=== PATIENT | male | born 1945 | race Caucasian/White ===

== ENCOUNTER 2020-08-01 08:36 | Outpatient (CLI) | payer MEDICARE, SELFPAY ==
--- NOTE | ~2020-08-01 | XR_ITS ---
EXAMINATION: XR abdomen/kub 1V DATE: 08/01/2020 09:15 INDICATION: Bladder stone. TECHNIQUE: A supine view of the abdomen on 2 radiographs was obtained. COMPARISON: CT abdomen and pelvis 08/01/2020 FINDINGS: There are no dilated loops of bowel. Calcified pulmonary nodules are consistent with old gr anulomatous disease. There are surgical clips in the posterior mediastinum and upper abdomen. Calcifi cations in the spleen are consistent with old granulomatous disease. The kidneys are obscured by mulu l. There is a 2.7 cm stone in the bladder. There are phleboliths in the pelvis. IMPRESSION: 1. Bladder stone. Reviewed, dictated and finalized at location B. IMPRESSION: 1. Bladder stone.
--- NOTE | ~2020-08-01 | CT_ITS ---
EXAMINATION: CT abdomen pelvis wo con DATE: 08/01/2020 09:09 INDICATION: Bladder stone TECHNIQUE: Computed tomography (CT) of the abdomen and pelvis was performed without intravenous contr ast. Automated exposure control and iterative reconstruction technique were employed. Exam dose: 674 .98 mGy-cm total exam DLP. COMPARISON: None. FINDINGS: Probable postoperative deformity of the left rib cage. There are numerous bilateral calcified pulmonary granulomas. There are bilateral calcified hilar as w ell as subcarinal lymph nodes. Multiple calcified splenic granulomas. There is elevation left leaf of diaphragm and associated atelectasis at the left lung base. No infiltrate or consolidation is noted otherwise at the level included lower lung zones. Heart size is upper limits of normal. Coronary artery calcification. No pericardial or pleural effusi on. Small sliding hiatal hernia. There is no evidence of cholelithiasis. Gallbladder wall appears thickened. No pericholecystic fluid or fat stranding. No bile duct or pancreatic duct dilatation. No hepatic, splenic, pancreatic, adrenal or renal space-occupying mass lesion is detected. There are multiple bilateral nonobstructing renal calculi. No ureteral calculus or hydroureteronephrosis. There is a 2.6 cm bladder stone. There is prostate enlargement and multiple prostate calcifications. There is moderate diffuse bladder wall thickening likely secondary to bladder outlet obstruction; cystitis would be an additional cons ideration in the differential diagnosis due to the presence of mild fat stranding around the urinary bladder. Bilateral fat-containing inguinal hernias, left larger than right. Small fat-containing umbilical hernia. Normal appendix. There are numerous diverticula in the sigmoid and descending colon; no CT evidence of diverticulitis. No bowel obstruction, bowel wall thickening, pneumatosis or intraperitoneal free air. There is atherosclerotic calcification of the abdominal aorta and branches but no abdominal aortic an eurysm. No intraperitoneal or retroperitoneal or pelvic mass lesion or adenopathy or ascites. Diffuse idiopathic skeletal hyperostosis of the thoracic spine. There is degenerative change at the apophyseal joints of the lumbar spine with associated grade 1 ant erolisthesis at L4-5. There is degenerative spurring and degenerative disc disease of the lumbar spin e, the degenerative disc disease most pronounced at L4-5. No suspicious osteolytic or osteoblastic lesions are noted. 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 Reviewed, dictated and finalized at location A.
== END 2020-08-01 08:37 | disposition home or self-care (01) ==
PROVIDERS: PCP Family Medicine; Visit Provider Urology
DX: N21.0 Calculus in bladder (principal); N40.0 Benign prostatic hyperplasia without lower urinary tract symptoms; N20.0 Calculus of kidney; K57.90 Diverticulosis of intestine, part unspecified, without perforation or abscess without bleeding; K40.20 Bilateral inguinal hernia, without obstruction or gangrene, not specified as recurrent; D71 Functional disorders of polymorphonuclear neutrophils
CPT/HCPCS: 74018; 74176

== ENCOUNTER → 2020-08-06 09:11 | Outpatient (CLI) | payer MEDICARE, SELFPAY ==
[2020-08-06 20:07] LABS: SARS-CoV-2 RNA PCR Negative
== END ==
PROVIDERS: Visit Provider Urology
DX: Z01.812 Encounter for preprocedural laboratory examination (principal); Z20.822 Contact with and (suspected) exposure to COVID-19
CPT/HCPCS: C9803; U0003; U0005

== ENCOUNTER 2020-08-07 11:01 | Outpatient (CLI) | payer MEDICARE, SELFPAY ==
--- NOTE | 2020-08-07 11:30 | ECG_ITS ---
Measurements Intervals [place] Rate: 70 P: 79 WI: 254 QRS: -6 QRSD: 91 T: 28 QT: 336 QTc: 362 Interpretive Statements SINUS RHYTHM WITH FIRST DEGREE AV BLOCK INCOMPLETE RIGHT BUNDLE BRANCH BLOCK BASELINE ARTIFACT- I, III, AVR, AVL, AVF ABNORMAL ECG Electronically Signed On 08-07-2020 12:34:15 CDT by Jourdan Rodriguez D.O.
== END 2020-08-07 11:02 | disposition home or self-care (01) ==
PROVIDERS: PCP Family Medicine; Visit Provider Urology
DX: Z01.810 Encounter for preprocedural cardiovascular examination (principal); E78.5 Hyperlipidemia, unspecified; I44.0 Atrioventricular block, first degree; I45.10 Unspecified right bundle-branch block
CPT/HCPCS: 93005

== ENCOUNTER 2020-08-08 19:01 | Observation (INO) | payer MEDICARE, SELFPAY ==
[2020-08-06 13:56] VITALS: BMI 35.6
[2020-08-08] VITALS (17 sets, daily range): BP systolic 117–193; BP diastolic 77–118; PULSE 67–79; RESP 13–29; TEMP 35.6–36.3; O2SAT 92–96
--- NOTE | 2020-08-08 06:48 | WPDHPUPDATE1 ---
History and Physical Update Update Date/Time: 08/08/20 06:48 History and Physical has been reviewed, including an updated exam of the patient. There are NO changes in the patient's condition. Risks, benefits, and alternatives have been discussed and questions answered. Patient agrees to proceed with procedure.
[2020-08-08] MEDS: LACTATED RINGERS 1,000 ML 30 ML IV CONT ×2 (13:03→17:02)
--- NOTE | 2020-08-08 13:04 | P.PNAN_ITS ---
Anes - Initial Pre Proc Eval Procedure: Operation Date: 08/08/20 14:30 Proposed Procedures p Laser Ablation of Bladder Stones - Lazaro Jordan MD Date/Time: 08/08/20 13:04 Surgeon: Lazaro Jordan MD Pre Op Diagnosis: bladder stone, hematuria Patient Data Age: 75 Gender: M Height: 1.68 m Weight: 100 kg Allergies Allergy/AdvReac Type Severity Reaction Status Date / Time morphine AdvReac Hallucinati Verified 08/08/20 13:13 ng Home Medications Medication Instructions Recorded Confirmed Type finasteride 5 mg tablet 5 mg PO DAILY 05/11/19 08/06/20 History lovastatin 40 mg tablet 40 mg PO DAILY #90 tablet 02/05/20 08/06/20 Rx pregabalin 150 mg capsule 150 mg PO BID #60 cap 07/17/20 08/06/20 Rx mirabegron [Myrbetriq] 50 mg PO DAILY 08/06/20 08/06/20 History tamsulosin 0.4 mg PO HS 08/06/20 08/06/20 History Patient hx anesthesia problems: none Family hx anesthesia problems: none PMFSH Past Medical History Medical History Arthritis Ceruminosis FRY (dyspnea on exertion) Dyslipidemia Elevated lipids Elevated PSA (11/16/14) Hyperlipidemia (11/16/14) Neuropathic pain Obesity (BMI 30.0-34.9) Post traumatic stress disorder (PTSD) (12/31/16) Preop cardiovascular exam Right knee pain Routine general health check-up of defined subpopulation (10/22/16) Surgical History Surgical History History of carpal tunnel surgery of right wrist History of fusion of cervical spine 01/19/2019 History of hernia repair History of tonsillectomy and adenoidectomy Family History Family History Mother Acute myocardial infarction Brother Acute myocardial infarction Social History Social History Smoking status: Never smoker Alcohol intake: never Substance use: never Living arrangements: with family Additional living arrangements comments: 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 Gender identity (if verbalized by the patient): Male Spiritual care concerns: No Anes - Eval Final PreProcedure Day of Procedure 08/08/20 13:04 Patient weight: obese Heart: regular rate and rhythm Lungs: clear to auscultation and normal air movement Airway: Mallampati scale class II Neurological: alert and oriented Last oral intake: >/= 8 hours ASA classification: III Emergent: no Anesthetic plan: proceed Anesthesia type and monitoring: general LMA and standard monitoring Informed Consent: The patient's anesthetic plan and its attendant risks and benefits were discussed with the patient/family/POA. Questions were solicited and answers provided to the satisfaction of the patient/family/POA.
[2020-08-08] MEDS: ceFAZolin 2 GM/D5W 50 ML 2 GM/50 ML BAG IVPB (14:59)
[2020-08-08] MEDS: LIDOCAINE HCL 2% GEL UROJET 10 ML PKG MUCOUS MEM (15:17)
--- NOTE | 2020-08-08 17:18 | PM.PROC ---
Procedure Note - Detailed Date of procedure: 08/08/20 Pre-op diagnosis: bladder stone, hematuria Post-op diagnosis: same Procedure performed: Cystoscopy, laser lithotripsy and extraction of a large bladder calculus Description of procedure: Patient brought to the op suite was prepped draped in routine sterile fashion while in dorsal lithotomy position after the uneventful induction of a general LMA anesthetic. A 21 F rigid cystoscope was placed in his bladder. He is obese. Large bladder stone, seen to be larger than had 2.[address] scan. Stone was also very hard making laser lithotripsy painful E slow. Using and 1000 micron laser fiber at a power of 1.2 and we delivered over 59,000 shocks to fracture the stone into small pieces a could be evacuated with an Ellik evacuator. Remainder of the bladder was normal. He had a large prostate with predominantly lateral lobe hyperplasia. Placed a 24 F hematuria catheter with clear efflux at the termination. Anesthesia: GLMA Surgeon: Lazaro Jordan MD Drains: Yes Packing: No Pathology: yes Complications: No immediate complications Condition: stable Disposition: PACU
--- NOTE | 2020-08-08 17:43 | SUR.PHASEI ---
Patient laying on right side. BP is also on right arm. RN thinks BP is inaccurate.
[2020-08-08] MEDS: ONDANSETRON INJ 4 MG/2 ML VIAL IV PUSH (17:58)
[2020-08-08] MEDS: LABETALOL HCL INJ 100 MG/20 ML VIAL IV PUSH ×2 (18:10→18:34)
--- NOTE | 2020-08-08 19:23 | ADMGEN ---
This patient, Fredrick Santiago, was admitted to Medical Room 249-01. Patient/family oriented to hospital policies and general routines including ID bracelet, bed and alarms, visiting hours, pain management, procedures, bathroom and other care routines, personal items, smoking policy, room service/diet, and visiting hours. Information on how to activate the Rapid Response Team has been discussed. Patient/Family are encouraged to report perceived risks to care and to ask questions if they do not understand what they are told or what they should do.
[2020-08-08] MEDS: TAMSULOSIN HCL 0.4 MG CAPSULE PO (20:56)
[2020-08-08] MEDS: DOCUSATE SODIUM 100 MG CAPSULE PO (20:56)
[2020-08-08] MEDS: PREGABALIN (*CRX) 75 MG CAPSULE 150 MG PO (20:56)
[2020-08-09 04:07] VITALS: BP 117/65; PULSE 79; RESP 18; TEMP 36.6; O2SAT 95
[2020-08-09 05:40] LABS: Hematocrit 40.2 % (42.0-52.0); Hemoglobin 13.5 g/dL (14.0-18.0)
[2020-08-09 06:05] LABS: Anion Gap 3 mmol/L (8-16); Blood Urea Nitrogen 18 mg/dL (9-20); Calcium 8.7 mg/dL (8.4-10.2); Carbon Dioxide 31 mmol/L (22-30); Chloride 102 mmol/L (98-107); Estimated CRCL calculation 57 ml/min; Estimated Glomerular Filt Rate > 60; Glucose 141 mg/dL (75-110); Potassium 4.6 mmol/L (3.4-5.0); Sodium 136 mmol/L (137-145)
--- NOTE | 2020-08-09 06:56 | WPDUROPN2 ---
Progress Note: A&P Assessment and Plan (1) Bladder stone: Code(s): N21.0 - Calculus in bladder Status: Acute Assessment and Plan: Doing well following laser litho. large/hard bladder stone. Stop CBI this morning. Voiding trial later this morning if urine remains clear. Subjective Subjective Date/Time Seen: 08/09/20 06:56 Comfortable, urine clear Review of Systems Cardiovascular: Cardiovascular: Denies chest pain, Denies lightheadedness, Denies palpitations and Denies dyspnea Respiratory: Respiratory: Denies dyspnea Gastrointestinal: Gastrointestinal: Denies diarrhea, Denies nausea and Denies vomiting Genitourinary: Genitourinary: Denies hematuria and Denies dysuria Endocrine: Endocrine: Denies palpitations Exam Const: General: no acute distress Resp: Effort & Inspection: normal respiratory effort GI: Inspection: non-distended GI Palp: No abdominal tenderness and No Guarding due to palpation present (GI) Auscultation: normal bowel sounds Objective Data Vital Signs Vital Signs: Vital Signs - 24 hr 08/08/20 13:18 08/08/20 17:02 08/08/20 17:15 Temperature 97.4 F L 96.1 F L Pulse Rate 79 76 71 Respiratory Rate 16 13 17 Blood Pressure 160/107 H 117/77 131/89 Pulse Oximetry 96 94 95 08/08/20 17:30 08/08/20 17:45 08/08/20 18:00 Temperature Pulse Rate 72 67 67 Respiratory Rate 20 28 H 27 H Blood Pressure 167/108 H 165/115 H 193/117 H Pulse Oximetry 95 92 94 08/08/20 18:10 08/08/20 18:15 08/08/20 18:30 Temperature Pulse Rate 68 67 70 Respiratory Rate 24 H 24 H Blood Pressure 167/106 H 157/118 H Pulse Oximetry 94 92 08/08/20 18:34 08/08/20 18:45 08/08/20 19:29 Temperature Pulse Rate 70 68 Respiratory Rate 29 H Blood Pressure 137/101 H Pulse Oximetry 92 93 08/08/20 19:30 08/08/20 19:45 08/08/20 20:15 Temperature 96.8 F L 96.6 F L 96.9 F L Pulse Rate 75 72 70 Respiratory Rate 18 18 20 Blood Pressure 147/91 H 160/89 H 155/92 H Pulse Oximetry 95 94 95 08/08/20 21:36 08/08/20 23:46 08/09/20 04:07 Temperature 97.2 F L 97.4 F L 97.8 F Pulse Rate 74 76 79 Respiratory Rate 20 22 H 18 Blood Pressure 142/93 H 136/80 117/65 Pulse Oximetry 95 95 95 Intake/Output Intake/Output: Intake & Output 08/06/20 08/07/20 08/08/20 08/09/20 23:59 23:59 23:59 23:59 Intake Total 600 400 Output Total 4550 Balance -3950 400 Meds/Results Medications: Active Medications Generic Name Dose Route Start Last Admin Trade Name Freq PRN Reason Stop Dose Admin Cephalexin HCl 500 mg 08/09/20 13:00 Cephalexin 500 Mg Capsule PO QID RUPINDER Docusate Sodium 100 mg 08/08/20 21:00 08/08/20 20:56 Docusate Sodium 100 Mg Capsule PO 100 mg Q12HR RUPINDER Administration Finasteride 5 mg 08/09/20 09:00 Finasteride 5 Mg Tablet PO DAILY [facility] Hyoscyamine 0.125 mg 08/08/20 19:01 Hyoscyamine Sulfate 0.125 Mg Tablet SUBLINGUAL Q6H PRN Bladder Spasm Cefazolin Sodium 1 gm in 50 mls @ 100 mls/hr 08/08/20 23:00 08/09/20 06:36 Ancef 1 Gm/D5w 50 Ml Pm IVPB 08/09/20 07:29 100 mls/hr Q8H RUPINDER Administration Ketorolac Tromethamine 15 mg 08/08/20 19:01 Ketorolac 15 Mg/Ml Vial (*Bk) IV PUSH Q6H PRN Pain Rated 4-6 Lovastatin 40 mg 08/09/20 09:00 Lovastatin 20 Mg Tablet PO DAILY [facility] Mirabegron 50 mg 08/09/20 09:00 Mirabegron 50 Mg Er Tablet PO DAILY [facility] Naloxone HCl 0.1 mg 08/08/20 19:01 Naloxone Hcl 0.4 Mg/Ml Vial IV PUSH Q2M PRN Opiate Reversal Ondansetron HCl 4 mg 08/08/20 19:01 Ondansetron Inj 4 Mg/2 Ml Vial IV PUSH Q12H PRN Nausea And Vomiting Pregabalin 150 mg 08/08/20 21:00 08/08/20 20:56 Pregabalin (*Crx) 75 Mg Capsule PO 150 mg Q12HR RUPINDER Administration Tamsulosin HCl 0.4 mg 08/08/20 21:00 08/08/20 20:56 Tamsulosin Hcl 0.4 Mg Capsule PO 0.4 mg HS RUPINDER Administration Labs Labs: Laboratory Results - last
[2020-08-09] MEDS: FINASTERIDE 5 MG TABLET PO (07:58)
[2020-08-09] MEDS: LOVASTATIN 20 MG TABLET 40 MG PO (07:58)
[2020-08-09] MEDS: PREGABALIN (*CRX) 75 MG CAPSULE 150 MG PO (07:58)
[2020-08-09] MEDS: MIRABEGRON 50 MG ER TABLET PO (07:58)
[2020-08-09] MEDS: DOCUSATE SODIUM 100 MG CAPSULE PO (07:59)
[2020-08-09 08:30] VITALS: O2SAT 94
[2020-08-09 08:46] VITALS: BP 118/63; PULSE 86; RESP 18; TEMP 37.3; O2SAT 94
[2020-08-09 09:36] VITALS: O2SAT 90
--- NOTE | 2020-08-09 10:07 | WPDANESPN ---
Anes - Prog Note Post-Op Date/Time: 08/09/20 10:07 Cardiovascular status: normal Respiratory status: normal Airway patency: baseline Mental status: baseline Post-Op hydration status: normal Vital Signs: Last Vital Signs Temp 37.3 C 08/09/20 08:46 Pulse 86 08/09/20 08:46 Resp 18 08/09/20 08:46 BP 118/63 08/09/20 08:46 Pulse Ox 90 08/09/20 09:36 Pain Score (VAS): 0 I/O: Intake & Output 08/08/20 08/09/20 08/09/20 23:59 07:59 15:59 Intake Total 600 450 480 Output Total 4550 1000 Balance -3950 -550 480 Laboratory Tests 08/09/20 05:30 08/09/20 05:30 08/09/20 08/09/20 05:30 05:30 Hgb 13.5 L Hct 40.2 L Sodium 136 L Potassium 4.6 Chloride 102 Carbon Dioxide 31 H Anion Gap 3 L BUN 18 Creatinine 1.10 Estim Creat Clear Calc 57 Estimated GFR > 60 Glucose 141 H Calcium 8.7 Post-procedural complaints: none Patient Feedback: Patient satisfied with anesthetic care.
[2020-08-09 12:46] VITALS: BP 120/84; PULSE 96; RESP 18; TEMP 37.2; O2SAT 99
--- NOTE | 2020-08-09 13:03 | P.DS_ITS ---
DS: Admitting Diagnosis Admitting Diagnosis Admitting Diagnosis: BPH and bladder calculus DS: Discharge Diagnosis Discharge Diagnosis (1) Bladder stone: Code(s): N21.0 - Calculus in bladder Status: Acute DS: Summary Hospital Course Hospital Course: This patient with longstanding prostatism refractory for medical management was admitted on the morning of his planned laser lithotripy large bladder stone. The procedure was undertaken on that same day in an uneventful fashion. His post-operative course was, likewise, uneventful. On the evening of the procedure he was tolerating a diet. On POD#1 his urine was clear on CBI. The urine remained clear and, therefore, the catheter was removed late morning. The patient was observed for several hours, until he demonstrated he could void effectively without significant hematuria. He was discharged with careful instruction on limiting physical activity x2 weeks and plans to f/ in 2- 3 weeks. At discharge he was comfortable and tolerating a diet. Time Spent with Patient Time attestation: Total time spent providing and/or coordinating discharge services:20 min Exam Const: General: no acute distress Resp: Effort & Inspection: normal respiratory effort GI: Inspection: non-distended GI Palp: No abdominal tenderness and No Guarding due to palpation present (GI) Auscultation: normal bowel sounds DS: Data Data Completed and Pending Pending studies at discharge: Pending at discharge 08/08/20 16:54 Surgical [PTH] Routine Labs on day of discharge: Labs from last 24 hours 08/09/20 08/09/20 05:30 05:30 Hgb 13.5 L Hct 40.2 L Sodium 136 L Potassium 4.6 Chloride 102 Carbon Dioxide 31 H Anion Gap 3 L BUN 18 Creatinine 1.10 Estim Creat Clear Calc 57 Estimated GFR > 60 Glucose 141 H Calcium 8.7 Discharge Plan Discharge Attending physician on discharge: Lazaro Jordan Discharging Clinician: Lazaro Jordan Anticipated Discharge Date/Time: 08/09/20 13:00 Patient Disposition: Home, Self-Care Activity: unlimited Diet: as tolerated Discharge Instructions: 1) Activity: No lifting/straining >15lbs. x1 weeks. 2) Diet: Resume normal pre-admission diet. 3) Follow-up: 2-3 weeks / call office for appointment ([phone]). Patient Instructions: Antibiotic Form, Depression Management for Older Adults (GEN) Stand Alone Forms: General Discharge Information Follow-up/Referrals: Lazaro Jordan MD [Physician] - Discharge Medications: New hydrocodone-acetaminophen 5-325 mg tablet 1 - 2 tablet PO Q6H PRN (Reason: pain) Qty: 20 RF: 0 sulfamethoxazole-trimethoprim 800-160 mg tablet 1 tablet PO Q12H Qty: 6 RF: 0 Continued tamsulosin 0.4 mg capsule 0.4 mg PO HS RF: 0 Myrbetriq 50 mg tablet extended release 24 hr 50 mg PO DAILY RF: 0 finasteride 5 mg tablet 5 mg PO DAILY RF: 0 lovastatin 40 mg tablet 40 mg PO DAILY Qty: 90 RF: 3 pregabalin 150 mg capsule 150 mg PO BID Qty: 60 RF: 3 Date of admission: 08/08/20 19:01 Primary Care Provider: Noel Mcclain Admitting Provider: Lazaro Jordan Attending physician on admission: Lazaro Jordan Condition: Stable
[2020-08-09] MEDS: CEPHALEXIN 500 MG CAPSULE PO (13:46)
== END 2020-08-09 13:58 | disposition home or self-care (01) ==
LOC: ANH2MED 19:09
PROVIDERS: Admitting Provider Urology; PCP Family Medicine; Visit Provider Urology
PROC: (CPT 52318; principal; 2020-08-08 14:30)
DX: N21.0 Calculus in bladder (principal); R31.9 Hematuria, unspecified; N40.0 Benign prostatic hyperplasia without lower urinary tract symptoms
CPT/HCPCS: 52318; 36415; 80048; 82365; 85014; 85018; 88300; 93005; A9270; C1758; C9803; G0378; J0690; J1100; J2405; J2704; J3010; J7120; U0003; U0005

== ENCOUNTER 2020-12-30 11:40 | Outpatient (CLI) | payer MEDICARE, SELFPAY ==
[2020-12-30 12:48] LABS: SARS-CoV-2 RNA PCR Negative (Negative)
== END 2020-12-30 11:41 | disposition home or self-care (01) ==
LOC: CHSLAB 11:43
PROVIDERS: PCP Family Medicine; Visit Provider Family Medicine
DX: Z20.822 Contact with and (suspected) exposure to COVID-19 (principal)
CPT/HCPCS: C9803; U0003; U0005

== ENCOUNTER 2021-11-17 11:40 | Outpatient (CLI) | payer MEDICARE, SELFPAY ==
--- NOTE | ~2021-11-17 | XR_ITS ---
EXAM: XR abdomen/kub 1V DATE: 11/17/2021 12:02 HISTORY: BLADDER STONE . COMPARISON: 08/01/2020. FINDINGS: Cholecystectomy and GE junction surgical clips. Normal bowel gas pattern. No organomegaly. Bladder calcification no longer visualized. Pelvic phleboliths. Calcified pulmonary or liver granulo mas. Vascular calcifications. Degenerative lumbar spine changes. IMPRESSION: No bladder stones detected.. Reviewed, dictated and finalized at location K.
== END 2021-11-17 11:41 | disposition home or self-care (01) ==
PROVIDERS: PCP Family Medicine; Visit Provider Urology
DX: N21.0 Calculus in bladder (principal)
CPT/HCPCS: 74018

== ENCOUNTER 2023-01-19 11:19 | Outpatient (CLI) | payer MEDICARE, SELFPAY ==
--- NOTE | ~2023-01-19 | XR_ITS ---
XR abdomen/kub 1V 01/19/2023 11:42 Indication: Bladder stones Procedure: KUB Comparison: Comparison to multiple prior studies sequentially, with oldest reviewed study dated 11/17. Findings: There are multiple calcifications in the pelvis. Cannot exclude bladder stones. There are r ight renal stones. Bowel gas pattern is nonobstructive. Moderate lumbar spondylosis. Impression: 1: Right nephrolithiasis. Possible bladder stones. Reviewed, dictated and finalized at location A. Impression: 1: Right nephrolithiasis. Possible bladder stones.
== END 2023-01-19 11:20 | disposition home or self-care (01) ==
PROVIDERS: PCP Family Medicine; Visit Provider Urology
DX: N21.0 Calculus in bladder (principal)
CPT/HCPCS: 74018

== ENCOUNTER 2023-01-27 10:57 | Outpatient (CLI) | payer MEDICARE, SELFPAY ==
--- NOTE | 2023-01-27 11:06 | ECG_ITS ---
Measurements Intervals [place] Rate: 59 P: 49 MS: 256 QRS: -11 QRSD: 59 T: 1 QT: 414 QTc: 410 Interpretive Statements SINUS BRADYCARDIA WITH FIRST DEGREE AV BLOCK ATRIAL PREMATURE COMPLEX RIGHT BUNDLE BRANCH BLOCK BASELINE ARTIFACT- I, II, III, AVR, AVL, AVF, V4-V6 ABNORMAL ECG COMPARED TO ECG 08/07/2020 11:18:36 SINUS BRADYCARDIA NOW PRESENT RIGHT BUNDLE BRANCH BLOCK NOW PRESENT Electronically Signed On 01-27-2023 11:34:44 CUSTOMER PROGRAM MANAGER by Jourdan Rodriguez D.O.
[2023-01-27 11:51] LABS: Prothrombin Time 13.5 Seconds (11.1-14.7)
[2023-01-27 11:52] LABS: Partial Thromboplastin Time 28.1 SECONDS (22.3-36.8)
== END 2023-01-27 10:58 | disposition home or self-care (01) ==
LOC: ANHSURGERY 11:03
PROVIDERS: PCP Family Medicine; Visit Provider Urology
DX: Z01.812 Encounter for preprocedural laboratory examination (principal); Z01.810 Encounter for preprocedural cardiovascular examination; N20.0 Calculus of kidney; E78.00 Pure hypercholesterolemia, unspecified; R00.1 Bradycardia, unspecified; I44.0 Atrioventricular block, first degree; I45.10 Unspecified right bundle-branch block
CPT/HCPCS: 36415; 85610; 85730; 87086; 93005

== ENCOUNTER 2023-02-05 00:28 | Day surgery (SDC) | payer MEDICARE, SELFPAY ==
[2023-01-25 11:09] VITALS: BMI 32.9
--- NOTE | 2023-01-25 11:17 | PC.NURSE ---
PRE-OP INSTRUCTIONS, PLEASE READ CAREFULLY Report to the Outpatient Waiting Room, entrance under the green pavilion located off [facility], at time _0900_ on date _02/05/23_. Planned Procedure Time: _1100_. Time changes happen often and if your time is changed the preop area will call you the afternoon before. - You and your visitor will be asked to self-screen and do not enter if you have any COVID symptoms. - A mask is optional within the hospital at this time. Patients may have clear liquids (water, carbonated beverages, clear teas, apple juice) until 3 hours prior to surgery (0800 AM) with a maximum of 20 ounces. - No food from midnight until time of surgery Take the following medications with a SIP of water the morning of surgery: _PREGABALIN_ DO NOT STOP ANY OF YOUR OTHER PRESCRIPTION MEDICATIONS PRIOR TO SURGERY ?EXCEPT THE FOLLOWING Medications to discontinue _ALEVE PER DR. LUONG'S INSTRUCTIONS__ Please no make-up, nail german, hairspray, perfume, deodorant, or body powder the day of surgery. No jewelry (including any body piercings) or valuables the day of surgery, leave them at home. Please take a shower or bath the night before, or the morning of, surgery with an antibacterial soap. Wear comfortable, loose fitting clothing. Children are encouraged to wear pajamas. - Jewelry must be removed prior to entering the operating room. Rings and piercings that are not removed may be cut off. - The hospital will not accept responsibility for valuables. - Please leave all valuables, including medications, at home the day of surgery. If you are going home after surgery, a licensed regional refrigerated cdl truck driver must drive you home. - NO public transportation without another adult if you receive anesthesia. - We recommend that an adult stay with you for 24 hours following discharge. - We also recommend that you do not drive, make important decision, drink alcoholic beverages, or take any drugs that were not prescribed by your health care provider for at least 24 hours after your discharge time. For Pediatric surgeries, we recommend two adults accompany the child home. Follow any additional instructions given to you from your surgeon. If you or anyone in your household have experienced Covid symptoms in the past week, please notify your surgeon or the nurse liaison at the phone number below for possible testing. Telephone instructions given to _MYRANDA (PER PT REQUEST)_and asked if any additional questions and then verbalized understanding. Patient advised to call surgeon office or pre surgery nurse liaison [phone] if any additional questions.
[2023-02-05] VITALS (9 sets, daily range): BP systolic 102–148; BP diastolic 67–91; PULSE 57–91; RESP 14–18; TEMP 36.5–36.6; O2SAT 94–100
--- NOTE | ~2023-02-05 | XR_ITS ---
EXAMINATION: XR abdomen/kub 1V DATE: 02/05/2023 08:59 INDICATION: Kidney stone. TECHNIQUE: A supine view of the abdomen on 2 radiographs was obtained. COMPARISON: CT abdomen and pelvis 08/01/2020 FINDINGS: There are no dilated loops of bowel. There are phleboliths in the pelvis. There are calcifi cations in the prostate. There are 6 mm and 2 mm stones in right kidney. There is a 10 mm stone in th e area of right renal pelvis. There are surgical clips in the upper abdomen. IMPRESSION: 1. Stones in the right kidney and right renal pelvis. Reviewed, dictated and finalized at location A. BACK RIDER
--- NOTE | 2023-02-05 06:40 | WPDHPUPDATE1 ---
History and Physical Update Update Date/Time: 02/05/23 06:40 History and Physical has been reviewed, including an updated exam of the patient. There are NO changes in the patient's condition. Risks, benefits, and alternatives have been discussed and questions answered. Patient agrees to proceed with procedure.
[2023-02-05] MEDS: LACTATED RINGERS 1,000 ML 30 ML IV CONT ×2 (09:30→11:41)
--- NOTE | 2023-02-05 09:39 | WPDANESEPPF ---
Anes - Initial Pre Proc Eval Procedure: Operation Date: 02/05/23 11:00 Proposed Procedures p Right Renal Extracorporeal Shock Wave Lithotripsy - Lazaro Jordan MD Date/Time: 02/05/23 09:39 Surgeon: Lazaro Jordan MD Pre Op Diagnosis: right renal stones Patient Data Age: 77 Gender: M Height: 1.7 m Weight: 95.45 kg Allergies Allergy/AdvReac Type Severity Reaction Status Date / Time morphine AdvReac Hallucinati Verified 01/25/23 11:07 ng Home Medications Medication Instructions Recorded Confirmed Type finasteride 5 mg tablet 5 mg PO DAILY #90 tabs 06/18/22 01/25/23 Rx tamsulosin 0.4 mg capsule 0.4 mg PO HS #90 caps 06/18/22 01/25/23 Rx lovastatin 40 mg tablet See Rx Instructions .Route 11/02/22 01/25/23 Rx .COMPLEX #90 tabs pregabalin 225 mg capsule 225 mg PO BID #60 caps 01/22/23 01/25/23 Rx naproxen sodium 220 mg capsule 220 mg PO BID PRN Pain 01/25/23 01/25/23 History (Aleve) Patient hx anesthesia problems: none Family hx anesthesia problems: none Results Review: All pre-operative results and documents have been reviewed as part of the pre-operative evaluation. [facility] Past Medical History Medical History Bladder stone Ceruminosis Elevated blood pressure reading in office without diagnosis of hypertension Right knee pain Viral upper respiratory illness Surgical History Surgical History History of carpal tunnel surgery of right wrist History of fusion of cervical spine 01/19/2019 History of hernia repair History of tonsillectomy and adenoidectomy Family History Family History Mother Acute myocardial infarction Brother Acute myocardial infarction Social History Social History Smoking status: Never smoker Second hand tobacco smoke exposure: No Alcohol intake: never Substance use: never Substance use type: does not use Lack of Transportation: No Lack of Food: Never True Current Housing: I Have Housing Concerned About Future Housing: No Difficulty Paying Gas/Electric Bills: No Difficulty Paying for Meds: No Currently Unemployed: No Education: High School Diploma/GED Difficulty w/ Childcare or Family Care: No Living arrangements: with friend(s) Additional living arrangements comments: [place] Occupation/Education: retired 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 Gender identity (if verbalized by the patient): Male Sexual Orientation (if Verbalized by the Patient): Straight or Heterosexual Spiritual care concerns: No Anes - Eval Final PreProcedure Day of Procedure 02/05/23 09:39 Patient weight: obese Heart: regular rate and rhythm Lungs: clear to auscultation Airway: Mallampati scale class II and special considerations poor extension and poor dentition Neurological: alert and oriented Last oral intake: >/= 8 hours ASA classification: IV Emergent: no Anesthetic plan: proceed Anesthesia type and monitoring: general LMA and standard monitoring Results Review: All pre-operative results and documents have been reviewed as part of the pre-operative evaluation. Informed Consent: The patient's anesthetic plan and its attendant risks including loss/damage to his very weak teeth and benefits were discussed with the patient/family/POA. Questions were solicited and answers provided to the satisfaction of the patient/family/POA.
[2023-02-05] MEDS: ceFAZolin 2 GM/D5W 50 ML 2 GM/50 ML BAG IVPB (10:39)
--- NOTE | 2023-02-05 11:01 | W.PM.PROC2 ---
Procedure Note - Detailed Date of Procedure 02/05/23 Pre-op Diagnosis Right renal stones Post-op Diagnosis Other Procedure Performed Right ESWL Surgeon Lazaro Jordan MD Anesthesia General Description of Procedure The patient was brought to the operative suite where she was placed in the supine position on the Dornier lithotripsy table. We treated 2 stones in her right kidney - 1700 shocks to a larger and more medial and 800 shocks to the smaller. A total of 2500 shocks were delivered at a power setting of 4. There appeared to be good fragmentation of the stone. The patient tolerated the procedure well and was taken to the recovery room in good condition. Drains No Packing No Pathology None sent Complications No immediate complications Condition Stable
== END 2023-02-05 13:26 | disposition home or self-care (01) ==
PROVIDERS: PCP Family Medicine; Visit Provider Urology
PROC: (CPT 50590; principal; 2023-02-05 11:00)
DX: N20.0 Calculus of kidney (principal); E78.00 Pure hypercholesterolemia, unspecified; N40.1 Benign prostatic hyperplasia with lower urinary tract symptoms; N52.01 Erectile dysfunction due to arterial insufficiency; E66.9 Obesity, unspecified; Z68.33 Body mass index [BMI] 33.0-33.9, adult; Z82.49 Family history of ischemic heart disease and other diseases of the circulatory system
CPT/HCPCS: 50590; 36415; 74018; 85610; 85730; 87086; 93005; J0690; J1100; J2371; J2405; J2704; J3010; J7120

== ENCOUNTER 2023-02-16 08:50 | Outpatient (CLI) | payer MEDICARE, SELFPAY ==
--- NOTE | ~2023-02-16 | XR_ITS ---
Supine and upright views of the abdomen Clinical history: Right kidney stone COMPARISON: 02/05/2023 Findings: Bowel gas pattern is nonspecific. No evidence for obstruction or free air. There are probab le fragmented stones at the right lower renal pole. There are probable at least 2 right mid ureteral stones projecting at the level of L3. Osseous structures are intact. Impression: Probably 2 mid right ureteral stones at the level of L3. Probable fragment at right lower pole renal stones. Reviewed, dictated and finalized at location . AUTOMATION ENGINEER Impression: Probably 2 mid right ureteral stones at the level of L3. Probable fragment at right lower pole renal stones.
== END 2023-02-16 08:51 | disposition home or self-care (01) ==
PROVIDERS: PCP Family Medicine; Visit Provider Urology
DX: N20.0 Calculus of kidney (principal)
CPT/HCPCS: 74018

== ENCOUNTER 2023-02-25 11:42 | Outpatient (CLI) | payer MEDICARE, SELFPAY ==
--- NOTE | ~2023-02-25 | XR_ITS ---
XR abdomen/kub 1V 02/25/2023 11:58 Indication: Renal stone Procedure: KUB Comparison: Comparison to multiple prior studies sequentially, with oldest reviewed study dated 11/17. Findings: Nonobstructive bowel gas pattern. There are splenic arterial calcification. There are calci fied granulomas overlying the lung bases. No renal stones. Moderate lumbar spondylosis. Impression: 1: No acute abdominal abnormality. Reviewed, dictated and finalized at location L. RVISOR WIRE ROPE FABRICATION Impression: 1: No acute abdominal abnormality.
== END 2023-02-25 11:43 | disposition home or self-care (01) ==
PROVIDERS: PCP Family Medicine; Visit Provider Urology
DX: N20.0 Calculus of kidney (principal)
CPT/HCPCS: 74018

== ENCOUNTER 2023-07-31 06:58 | Outpatient (CLI) | payer MEDICARE, SELFPAY ==
--- NOTE | ~2023-07-31 | MR_ITS ---
EXAMINATION: MR brain IAC wo con DATE: 07/31/2023 08:46 INDICATION: Bilateral leg weakness. Frequent falls. Stutter. TECHNIQUE: Magnetic resonance imaging (MRI) of the brain, brainstem, and internal auditory canals was performed without intravenous contrast. COMPARISON: None. FINDINGS: There is no intracranial hemorrhage, acute infarction, or abnormal intracranial mass lesion . There are scattered areas of nonspecific increased T2-weighted signal intensity in the cerebral whi te matter, which is within normal limits for the patient's age. There is an old infarct in left front oparietal region. The ventricles are normal in size. There are likely changes of ocular lens replacem ent surgeries. The mastoid air cells are normal. The paranasal sinuses are clear. IMPRESSION: 1. 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 Reviewed, dictated and finalized at location E.
== END 2023-07-31 06:59 | disposition home or self-care (01) ==
LOC: CHSIMG 06:59
PROVIDERS: PCP Family Medicine; Visit Provider Family Medicine
DX: R09.89 Other specified symptoms and signs involving the circulatory and respiratory systems (principal); Z86.73 Personal history of transient ischemic attack (TIA), and cerebral infarction without residual deficits
CPT/HCPCS: 70551

== ENCOUNTER 2023-08-05 12:03 | Outpatient (CLI) | payer MEDICARE, SELFPAY ==
--- NOTE | ~2023-08-05 | US_ITS ---
EXAMINATION: US carotid duplex BI DATE: 08/05/2023 13:00 INDICATION: Cerebral infarction, unspecified. Left frontoparietal infarct. TECHNIQUE: Grayscale, color Doppler, and pulsed Doppler images of the cervical carotid arteries were obtained. The degree of vessel stenosis is placed in one of the following categories: normal, <50%, 5 0-69%, >=70% but less than near-occlusion, near-occlusion, or total occlusion. Note that percent sten osis relative to normal distal artery lumen diameter is indirectly measured from velocity measurement s as described by Larry, et al. Radiology 2003; 229:340-346. COMPARISON: None. FINDINGS: RIGHT: The right common carotid artery (CCA) peak systolic velocity (PSV) is 134 cm/s. The right internal ca rotid artery (ICA) PSV is 123 cm/s. The right ICA end-diastolic velocity (EDV) is 98 cm/s. The right ICA/CCA PSV ratio is 1.0. Grayscale and color Doppler images yield an estimate of <50% diameter reduc tion from plaque in the ICA. Right vertebral artery is not identified. LEFT: The left CCA PSV is 94 cm/s. The left ICA PSV is 80 cm/s. The left ICA EDV is 25 cm/s. The left ICA/C CA PSV ratio is 0.9. Grayscale and color Doppler images yield an estimate of <50% diameter reduction from plaque in the ICA. There is antegrade flow in the left vertebral artery. IMPRESSION: 1. <50% stenosis in the right internal carotid artery. 2. <50% stenosis in the left internal carotid artery. 3. Right vertebral artery is not identified and may be small or thrombosed. Reviewed, dictated and finalized at location E.
== END 2023-08-05 12:04 | disposition home or self-care (01) ==
LOC: CHSIMG 12:04
PROVIDERS: PCP Family Medicine; Visit Provider Family Medicine
DX: I65.23 Occlusion and stenosis of bilateral carotid arteries (principal)
CPT/HCPCS: 93880

== ENCOUNTER 2023-08-19 14:41 | Outpatient (CLI) | payer MEDICARE, SELFPAY ==
--- NOTE | 2023-08-19 14:48 | ECHO_ITS ---
Patient Info Name: Fredrick Santiago Age: 78 years : 1945 Gender: Male Ht: 66 in Wt: 240 lbs BSA: 2.30 m2 HR: 66 bpm BP: 159 / 93 mmHg Technical Quality: Fair Exam Date: 08/19/2023 2:40 PM Exam Location: Echo Lab Patient Status: Outpatient Admit Date: 08/19/2023 Staff Ordering Physician: Mitesh Garcia DO Forming Process Line Worker: Donald Reilly RDCS Attending Provider: Mitesh Garcia DO Referring Physician: Jose MAHONEY; Exam Type: CA echo doppler color flow Study Info Indications - heart failure Summary 1. Left ventricular chamber dimension is normal. 2. Left ventricular systolic function is normal, estimated at 60-65%. 3. There is mild concentric increased left ventricular wall thickness. 4. The left ventricular diastolic function is grade I diastolic dysfunction. 5. E/e' 14 is mildly elevated. 6. Left atrial chamber dimension is severely enlarged. 7. There is moderate aortic valve sclerosis. 8. There is trace tricuspid valve regurgitation. 9. No pulmonary hypertension, estimated pulmonary arterial systolic pressure is 31 mmHg. 10. There is trace pulmonic regurgitation. 11. The aortic root size at the sinus of Valsalva is borderline dilated at 4.0 cm. Left Ventricle E/e' 14 is mildly elevated. Left ventricular chamber dimension is normal. Left ventricular systolic function is normal, estimated at 60-65%. There is mild concentric increased left ventricular wall thickness. The left ventricular diastolic function is grade I diastolic dysfunction. Right Ventricle Right ventricular systolic function is normal and with normal TAPSE 2.5 cm. Right ventricular chamber dimension is normal. Left Atria Left atrial chamber dimension is severely enlarged. Right Atria Right atrial chamber dimension is normal. Aortic Valve The aortic valve is trileaflet. There is moderate aortic valve sclerosis. There is no aortic valve stenosis. There is no aortic valve regurgitation. Pulmonic Valve There is trace pulmonic regurgitation. Mitral Valve There is no mitral valve stenosis. There is no mitral valve regurgitation. Tricuspid Valve There is trace tricuspid valve regurgitation. No pulmonary hypertension, estimated pulmonary arterial systolic pressure is 31 mmHg. Pericardium/Pleural There is no pericardial effusion. Inferior Vena Cava Normal inferior vena cava with >50% collapse upon inspiration consistent with normal right atrial pressure, 5 mmHg. Aorta The aortic root size at the sinus of Valsalva is borderline dilated at 4.0 cm. Left Ventricular Outflow Tract Name Value Normal LVOT 2D LVOT Diameter 2.2 cm LVOT Doppler LVOT Peak Velocity 131 cm/s LVOT Peak Gradient 7 mmHg LVOT Mean Gradient 4 mmHg LVOT VTI 28 cm LVOT VTI/AV VTI Ratio 0.7 LVOT Stroke Volume 109 ml Pulmonic Valve Name Value Normal PV Doppler
== END 2023-08-19 14:42 | disposition home or self-care (01) ==
PROVIDERS: PCP Family Medicine; Visit Provider Family Medicine
DX: I63.9 Cerebral infarction, unspecified (principal); I50.9 Heart failure, unspecified
CPT/HCPCS: 93306

== ENCOUNTER 2023-08-24 09:59 | Outpatient (CLI) | payer MEDICARE, SELFPAY ==
--- NOTE | ~2023-08-24 | XR_ITS ---
Supine and upright views of the abdomen Clinical history: Kidney stone COMPARISON: 02/25/2023 Findings: Bowel gas pattern is nonspecific. No evidence for obstruction or free air. Suspected small left renal stones. There is degenerative spondylosis of the lumbar spine. Impression: Suspected small left renal stones. Reviewed, dictated and finalized at [facility]. Impression: Suspected small left renal stones.
== END 2023-08-24 10:00 | disposition home or self-care (01) ==
LOC: ANHIMG 10:00
PROVIDERS: PCP Family Medicine; Visit Provider Urology
DX: N20.0 Calculus of kidney (principal)
CPT/HCPCS: 74018

== ENCOUNTER 2024-06-04 15:48 | Emergency (ER) | payer MEDICARE, SELFPAY ==
--- NOTE | ~2024-06-04 | XR_ITS ---
EXAM: XR elbow RT min 3V DATE: 06/04/2024 16:12 HISTORY: Fall, Rt. elbow pain . COMPARISON: None available. FINDINGS: Normal mineralization. Subtle cortical lucencies in the radial head. No lytic or blastic l esion. Severe degenerative change at the right elbow joint, with multiple loose bodies/old well-corti cated fracture fragments. Minimal olecranon enthesopathy. No erosion or periosteal change. Elbow join t effusion. IMPRESSION: Likely nondisplaced radial head fracture. Severe elbow osteoarthritis. Elbow joint effusi on. Reviewed, dictated and finalized at location K. IMPRESSION: Likely nondisplaced radial head fracture. Severe elbow osteoarthrit is. Elbow joint effusion.
[2024-06-04 15:49] VITALS: BP 159/95; PULSE 77; RESP 18; TEMP 36.5; O2SAT 95
--- OUTSIDE RECORDS SUMMARY | 2024-06-04 15:50 | XMS_ITS | CONTINUITY OF CARE DOCUMENT ---
Author Name marizol fontana Address Unknown Organization [facility] Address [address] [place] [address] [address] [place] [address] Phone [phone] Care Team Providers Care Hand Sprayer Name Role Phone marizol fontana Unavailable Unavailable
--- OUTSIDE RECORDS SUMMARY | 2024-06-04 15:50 | XMS_ITS | Continuity of Care Document ---
Author Organization [facility] Address [address] [place] [address] [place] [address] Phone Care Team Providers Care Bulb Grower Name Role Phone Ricardo Smith MD, FACS Unavailable Unavailab le Procedures Procedure Date After Cataract Laser Surgery Office/outpatient Visit, [facility] No Charge Optomap Fundus Photos 013 [...] Diagnoses Date Provider Providers Copied on Encounter Office/outpa tient Visit, [facility], [address] [address] [address], [place], [place], [id number], [place] tel:[phone] SEC Rigo VALERO Professional a comprehensive exam (chief complaint)a comprehensive exam (chief complaint)a comprehensive exam (chief complaint) [employer]TR-CATAR OBSCUR VISION Oct-0 8-201 3 Luis Silva. [address] [place] [address], [address], [place], [place], [id number], [place]. tel:[phone] Referring Provider: Leandra Ward OD, [facility] [address] [facility], [place], [address]. tel:[phone] Family History Family Member Type Diagnosis Age At Onset Brother Problem (finding) diabetes dianai aarons in first degree relative Problem (finding) Payers Payer name Insurance type Covered republican ID Authoriza tion(s) [place] [id number] Social History Type Description Quantity Date Captured Comments Alcohol Use Details No Caffeine Use Details 3 cups per day Tobacco Use Status No Information Smoking Status Never smoker Non-Smoking Tobacco Use Details : No Details Available : No Details Available Sex Male Chief Complaint And Reason For Visit From encounter dated 12/27/2012 09:00'. 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 Ward Related t [...]
--- OUTSIDE RECORDS SUMMARY | 2024-06-04 15:50 | XMS_ITS | Clinical Summary ---
Author Organization [facility] Address [address] [place] [id number] Care Team Providers Care Compressor Mechanic Bus Name Role Phone Unavailable Primary Care Provider Unavailabl e Immunizations Name Administration Dates Next Due MODERNA COVID-19 (12+) MRNA, LNP-S, PF, 100 MCG/ 0.5 ML DOSE 06/28/2020,05/31/2020 Social History Tobacco Use Types Packs/Day Years Used Date Smoking Tobacco: Never Assessed Sex and Gender Information Value Date Recorded Sex Assigned at Not on file Legal Sex Male 5:11 PM CDT Gender Identity Not on file Sexual Orientation Not on file Plan of Treatment Health Maintenance Due Date Last Done Comments Hepatitis C 1963 DTaP, Tdap and Td Vaccines ( 1 - Tdap) 1963 Zoster Vaccines (1 of 2) 1994 RSV Immunization or 60+ Years (1 - 1-dose 75+ series) 2019 Pneumococcal Vaccine: 65+ Years (2 of 2 - PPSV23 or PCV20) 12/17/2020 12/18/2019 COVID-19 Vaccine (3 - 2023-2 5 season) 2023 06/28/2020, 05/31/2020 Influenza Adult (#1) 2023 Meningococcal B Vaccine Aged Out No l onger eligible based on patient's age to complete this topic Meningococcal Vaccine Aged Out No dean kam eligible based on patient's age to complete this topic RSV Immunizations Under 20 Months Aged Out No longer eligible b ased on patient's age to complete this topic
--- OUTSIDE RECORDS SUMMARY | 2024-06-04 15:50 | XMS_ITS | Clinical Summary ---
Author Organization [facility] Address [address] [place] [address] Care Team Providers Care Plastic Surgery Manager Name Role Phone Riki Watson MD Primary Care Provider [phone] Source Comments [facility],non-owned Affiliates and Associated Physician Practices is amultiple site organization consisting of ambulatory clinics and hospital sitesin [place], [place], [place] and [place]. This disclosure is being madepursuant to the Care Everywhere program and may not contain all information available regarding this patient. Last updated 17.[facility] Allergies Active Allergy Reactions Criticality Noted Date Comments Morphine Psychiatric Medium 01/19/2019 HALLUCINATIONS Medications * Be aware that medications may not be up to date on this document. Alwaysverify current medications with the patient. Medication Sig Dispensed Refills Start Date End Date Status lovastatin (MEVACOR) 40 MG tablet Take 40 mg by mouth at bedtime Active finasteride (PROSCAR) 5 MG tablet Take 5 mg by mouth once daily Active Menthol, Topical Analgesic, (BIOFREEZE ROLL-ON EX) Active polyethylene glycol 3350 (MIRALAX) packet Take 17 g by mouth once daily as needed for Constipation 01/23/2019 Active HYDROcodone-acetami nophen (NORCO) 5-325 MG tablet 08/09/2020 Active tamsulosin (FLOMAX) 0.4 MG capsule 12/15/2020 Active pregabalin (LYRICA) 150 MG capsule Take 1 capsule by mouth 2 times daily 12/15/2020 Active MYRBETRIQ 50 MG tablet 05/01/2021 Active Active Problems Problem Noted Date Diagnosed Date S/P cervical spinal fusion 07/17/2019 Osteoarthritis of cervical spine with myelopathy 10/31/2018 Social History Tobacco Use Types Packs/Day Years Used Date Smoking Tobacco: Never Smokeless Tobacco: Never Alcohol Use Standard Drinks/Week Comments Never 0 (1 standard drink = 0.6 oz pur e alcohol) AUDIT-C Answer Date Recorded Frequency of Alcohol Consumption Never 01/19/2019 Average Number of Drinks Not on file 019 Frequency of Binge Drinking Not on file 12/22 Sex and Gender Information Value Date Recorded Sex Assigned at Not on file Gender Identity Not on file Sexual Orientation Not on file Last Filed Vital Signs Vital Sign Reading Time Taken Comments Blood Pressure 153/89 01/24/2019 8:45 AM PAID SEARCH ANALYST Pulse 63 01/24/2019 8:45 AM PAID SEARCH ANALYST Temperature 36.9 C (98.4 F) 01/24/2019 8:45 AM PAID SEARCH ANALYST Respiratory Rate 18 01/24/2019 8:45 AM PAID SEARCH ANALYST Oxygen Saturation 93% 01/24/2019 8:45 AM PAID SEARCH ANALYST Inhaled Oxygen Concentration - - Weight 117 kg (258 lb) 05/19/2021 9:07 AM PAID SEARCH ANALYST Height 167.6 cm (5' 6 ) 05/19/2021 9:07 AM PAID SEARCH ANALYST Body Mass Index 41.64 05/19/2021 9:07 AM PAID SEARCH ANALYST Plan of Treatment Health Maintenance Due Date Last Done Comments DTAP/TDAP/TD VACCINES (1 - Tdap) 1964 PNEUMOCOCCAL VACCINE 50+ (1 of 1 - PCV) 1994 ZOSTER VACCINE (1 of 2) 1994 Respiratory Syncytial Virus (RSV) Vaccine Pt: or over 60 yrs (1 - 1-dose 75+ series) 2019 COVID-19 VACCINE (3 - 2023-2 5 season) 2023 06/28/2020, 05/31/2020 INFLUENZA VACCINE (#1) 2023 DEPRESSION SCREENING 03/22/2024 MEDICARE AWV CALENDAR YEAR 2024 HEPATITIS B VACCINE Aged Out No longe r eligible based on patient's age to complete this topic HIB VACCINE Aged Out No longer eligi ble based on patient's age to complete this topic HPV VACCINE Aged Out No longer eligi ble based on patient's age to complete this topic MENINGOCOCCAL (Group B) VACCINE SHARED DECISION-MAKING Aged Out No longer eligible based on patient's age to complete this topic MENINGOCOCCAL GROUPS A/C/Y/W VACCINE Aged Out No longer eligible b ased on patient's age to complete this topic Medical Devices Implanted Type Area Admissions Representative Device Identifier Shelf Expiration Date Model / Serial / Lot Screw 3.5mm 16mm Pa Spne Oct [place] Implanted:Qty: 3 on 01/19/2019 by Josep Armando MD at [facility] N/A: Spine [place] Spine [id number] / / [place] Oct Polyaxial Screw Implanted:Qty: 4 on 01/19/2019 by Josep Armando MD at [facility] N/A: Spine [employer] [id number] / / Screw 3.5mm 22mm Pa Spne Oct [place] Implanted:Qty: 2 on 01/19/2019 by Josep Armando MD at [facility] N/A: Spine [place] Spine [id number] / / Screw Set Spne Oct [place] Nonster Lf Implanted:Qty: 15 on 01/19/2019 by Josep Armando MD at [facility] N/A: Spine [place] Spine [id number] / / Screw 5mm 34mm Pa Spne Oct [place] Nonster Implanted:Qty: 4 on 01/19/2019 by Josep Armando MD at [facility] N/A: Spine [place] Spine [id number] / / Prasad Spnl 240mm 4mm [place] Str Oct Ti Implanted:Qty: 1 on 01/19/2019 by Josep Armando MD at [facility] N/A: Spine Angela Spine [id number] / / Cnct Prasad 10mm 3.5mm [place] Lat Ofst Spne Implanted:Qty: 2 on 01/19/2019 by Josep Armando MD at [facility] N/A: Spine Angela Spine [id number] / / Graft Bone Canc 4-9.5mm 30cc Algrf Frzdr Implanted:Qty: 1 on 01/19/2019 by Josep Armando MD at [facility] N/A: Spine [employer] 07/21/2022 [id number] / / [id number] Advance Directives * Full Code (Latest Code Status on File) Date Activated Date Inactivated Comments 01/19/2019 6:46 PM 01/24/2019 12:54 PM * Full Code Date Activated Date Inactivated Comments 01/19/2019 6:46 PM 01/19/2019 6:46 PM Care Teams Plastic Surgery Manager Relationship Specialty Start Date End Date Riki Watson MD [address] [place] [address] PCP - General 05/04/18
--- OUTSIDE RECORDS SUMMARY | 2024-06-04 15:50 | XMS_ITS | Referral Summary ---
Author Organization [facility] Address [address] [place] [address] Care Team Providers Care Precision Aircraft Structure Assembler Name Role Phone Riki Watson MD Primary Care Provider [phone] Source Comments [facility],non-owned Affiliates and Associated Physician Practices is amultiple site organization consisting of ambulatory clinics and hospital sitesin [place], [place], [place] and [place]. This disclosure is being madepursuant to the Care Everywhere program and may not contain all information available regarding this patient. Last updated 17.[facility] Allergies Active Allergy Reactions Criticality Noted Date [...] Comments Blood Pressure 153/89 01/24/2019 8:45 AM MACHINE MAINTENANCE SERVICER Pulse 63 01/24/2019 8:45 AM MACHINE MAINTENANCE SERVICER Temperature 36.9 C (98.4 F) 01/24/2019 8:45 AM MACHINE MAINTENANCE SERVICER Respiratory Rate 18 01/24/2019 8:45 AM MACHINE MAINTENANCE SERVICER Oxygen Saturation 93% 01/24/2019 8:45 AM MACHINE MAINTENANCE SERVICER Inhaled Oxygen Concentration - - Weight 117 kg (258 lb) 05/19/2021 9:07 AM MACHINE MAINTENANCE SERVICER Height 167.6 cm (5' 6 ) 05/19/2021 9:07 AM MACHINE MAINTENANCE SERVICER Body Mass Index 41.64 05/19/2021 9:07 AM MACHINE MAINTENANCE SERVICER Functional Status Functional Status Response Date of Assess ment Is person deaf or have serious hearing difficult y? Yes 01/19/2019 Is person blind or have serious difficulty seein g? No 01/19/2019 Does person have serious dif ficulty walking/climbing stairs? Yes 01/19/2019 Does person have difficulty dressing/bathing? No 01/19/2019 Does person have difficulty doing errands alone? No 01/19/2019 Cognitive Status Response Date of Assessm ent Does person have difficulty concentrating/remembering/making decisions? Yes 01/19/2019 Plan of Treatment Not on file Medical Devices Implanted Type Area Efficiency Miner Device Identifier Shelf Expiration Date Model / Serial / Lot Screw 3.5mm 16mm Pa Spne Oct [place] Implanted:Qty: 3 on 01/19/2019 by Josep Armando MD at [facility] N/A: Spine [place] Spine [id number] / / [place] Oct Polyaxial Screw Implanted:Qty: 4 on 01/19/2019 by Josep Armando MD at [facility] N/A: Spine [employer] [id number] / / Screw 3.5mm 22mm Pa Spne Oct [place] Implanted:Qty: 2 on 01/19/2019 by Josep Armando MD at [facility] N/A: Spine [place] Spine [id number] / / Screw Set Spne Oct [place] Nonster Lf Implanted:Qty: 15 on 01/19/2019 by Josep Armando MD at [facility] N/A: Spine [place] Spine [id number] / / Screw 5mm 34mm Pa Spne Oct [place] Nonster Implanted:Qty: 4 on 01/19/2019 by Josep Armando MD at [facility] N/A: Spine [place] Spine [id number] / / Prasad Spnl 240mm 4mm [place] Str Oct Ti Implanted:Qty: 1 on 01/19/2019 by Josep Armando MD at [facility] N/A: Spine [place] Spine [id number] / / Cnct Prasad 10mm 3.5mm [place] Lat Ofst Spne Implanted:Qty: 2 on 01/19/2019 by Josep Armando MD at [facility] N/A: Spine [place] Spine [id number] / / Graft Bone Canc 4-9.5mm 30cc Algrf Frzdr Implanted:Qty: 1 on 01/19/2019 by Josep Armando MD at [facility] N/A: Spine [employer] 07/21/2022 [id number] / / [id number] Advance Directives * Full Code (Latest Code Status on File) Date Activated Date Inactivated Comments 01/19/2019 6:46 PM 01/24/2019 12:54 PM * Full Code Date Activated Date Inactivated Comments 01/19/2019 6:46 PM 01/19/2019 6:46 PM Care Teams Precision Aircraft Structure Assembler Relationship Specialty Start Date End Date Riki Watson MD [address] [place] [id number] PCP - General 05/04/18
--- OUTSIDE RECORDS SUMMARY | 2024-06-04 15:50 | XMS_ITS | Patient Health Summary ---
Author Organization [facility] [employer] Address [address] [place] [address] Care Team Providers Care Business Practices Supervisor Name Role Phone Riki Watson MD Primary Care Provider [phone] Note from [facility],non-owned Affiliates and Associated Physician Practices is amultiple site organization consisting of ambulatory clinics and hospital sitesin [place], [place], [place] and [place]. This disclosure is being madepursuant to the Care Everywhere program and may not contain all information available regarding this patient. Last updated 17.[facility] Allergies * Morphine(Psychiatric) -Medium Criticality Medications * Be aware that medications may not be up to date on this document. Alwaysverify current medications with the patient. * lovastatin (MEVACOR) 40 MG tablet Take 40 mg by mouth at bedtime * finasteride (PROSCAR) 5 MG tablet Take 5 mg by mouth once daily * Menthol, Topical Analgesic, (BIOFREEZE ROLL-ON EX) * polyethylene glycol 3350 (MIRALAX) packet(Started 01/23/2019) Take 17 g by mouth once daily as needed for Constipation * HYDROcodone-acetaminophen (NORCO) 5-325 MG tablet(Started 08/09/2020) * tamsulosin (FLOMAX) 0.4 MG capsule(Started 12/15/2020) * pregabalin (LYRICA) 150 MG capsule(Started 12/15/2020) Take 1 capsule by mouth 2 times daily * MYRBETRIQ 50 MG tablet(Started 05/01/2021) Active Problems Problem Noted Date Diagnosed Date [...] Comments Blood Pressure 153/89 01/24/2019 8:45 AM DELINQUENT TAX COLLECTOR Pulse 63 01/24/2019 8:45 AM DELINQUENT TAX COLLECTOR Temperature 36.9 C (98.4 F) 01/24/2019 8:45 AM DELINQUENT TAX COLLECTOR Respiratory Rate 18 01/24/2019 8:45 AM DELINQUENT TAX COLLECTOR Oxygen Saturation 93% 01/24/2019 8:45 AM DELINQUENT TAX COLLECTOR Inhaled Oxygen Concentration - - Weight 117 kg (258 lb) 05/19/2021 9:07 AM DELINQUENT TAX COLLECTOR Height 167.6 cm (5' 6 ) 05/19/2021 9:07 AM DELINQUENT TAX COLLECTOR Body Mass Index 41.64 05/19/2021 9:07 AM DELINQUENT TAX COLLECTOR Medical Devices Implanted Type Area Occ Ther Device Identifier Shelf Expiration Date Model / Serial / Lot Screw 3.5mm 16mm Pa Spne Oct [place] Implanted:Qty: 3 on 01/19/2019 by Josep Armando MD at [facility] N/A: Spine Angela Spine [id number] / / [place] Oct Polyaxial Screw Implanted:Qty: 4 on 01/19/2019 by Josep Armando MD at [facility] N/A: [employer] [id number] / / Screw 3.5mm 22mm Pa Spne Oct [place] Implanted:Qty: 2 on 01/19/2019 by Josep Armando MD at [facility] N/A: Spine [employer] Spine [id number] / / Screw Set Spne Oct [place] Nonster Lf Implanted:Qty: 15 on 01/19/2019 by Josep Armando MD at [facility] N/A: Spine [employer] Spine [id number] / / Screw 5mm 34mm Pa Spne Oct [place] Nonster Implanted:Qty: 4 on 01/19/2019 by Josep Armando MD at [facility] N/A: Spine Angela Spine [id number] / / Prasad Spnl 240mm 4mm [place] Str Oct Ti Implanted:Qty: 1 on 01/19/2019 by Josep Armando MD at [facility] N/A: Spine Angela Spine [id number] / / Cnct Prasad 10mm 3.5mm [place] Lat Ofst Spne Implanted:Qty: 2 on 01/19/2019 by Josep Armando MD at [facility] N/A: Spine [employer] Spine [id number] / / Graft Bone Canc 4-9.5mm 30cc Algrf Frzdr Implanted:Qty: 1 on 01/19/2019 by Josep Armando MD at [facility] N/A: Spine [employer] 07/21/2022 [id number] / / [id number] Procedures * XR CERVICAL SPINE 2 OR 3VW(Performed 05/19/2021) Performed for Neck pain * XR CERVICAL SPINE 2 OR 3VW(Performed 01/13/2021) Performed for Neck pain * XR CERVICAL SPINE 2 OR 3VW(Performed 01/15/2020) Performed for Cervical stenosis of spine * XR CERVICAL SPINE 2 OR 3VW(Performed 07/17/2019) Performed for Cervical stenosis of spine * XR CERVICAL SPINE 2 OR 3VW(Performed 2019) Performed for Cervical stenosis of spine * XR CERVICAL SPINE 2 OR 3VW(Performed 03/06/2019) Performed for Surgery follow-up examination * XR CERVICAL SPINE 2 OR 3VW(Performed 02/06/2019) Performed for Surgery follow-up examination * CBC W AUTO DIFFERENTIAL(Performed 01/24/2019) * CBC W AUTO DIFFERENTIAL(Performed 01/23/2019) * CBC W AUTO DIFFERENTIAL(Performed 01/22/2019) * BASIC METABOLIC PANEL (CALCIUM TOTAL)(Performed 01/22/2019) * CBC W AUTO DIFFERENTIAL(Performed 01/21/2019) * BASIC METABOLIC PANEL (CALCIUM TOTAL)(Performed 01/21/2019) * XR CERVICAL SPINE 2 OR 3VW(Performed 01/20/2019) 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 * XR THORACIC SPINE 2VW(Performed 01/20/2019) 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 * CBC W AUTO DIFFERENTIAL(Performed 01/20/2019) * BASIC METABOLIC PANEL (CALCIUM TOTAL)(Performed 01/20/2019) * [place] [facility] SURGERY(Performed 01/19/2019) 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 * BLOOD GASES ART COMPLETE [facility] OR(Performed 01/19/2019) 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 * BLOOD GASES ART COMPLETE [facility] OR(Performed 01/19/2019) 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 * ARTERIAL LINE NOTE(Performed 01/19/2019) * BLOOD GASES ART COMPLETE [facility] OR(Performed 01/19/2019) 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 * FUSION POSTERIOR CERVICAL (PCF) MULTI-LEVEL(Performed 01/19/2019) Performed for Diagnosis unknown * ENDOTRACHEAL TUBE NOTE(Performed 01/19/2019) * TYPE + SCREEN PANEL(Performed 01/19/2019) * XR CHEST 1VW(Performed 01/12/2019) Performed for Cervical stenosis of spine, Osteoarthritis of cervical spine with myelopathy, Osteoarthritis of spine with radiculopathy, cervical region * TYPE + SCREEN PANEL(Performed 01/12/2019) Performed for Cervical stenosis of spine, Osteoarthritis of cervical spine with myelopathy, Osteoarthritis of spine with radiculopathy, cervical region * URINALYSIS W/MICROSCOPIC NO CULTURE(Performed 01/12/2019) Performed for Cervical stenosis of spine, Osteoarthritis of cervical spine with myelopathy, Osteoarthritis of spine with radiculopathy, cervical region * COMPREHENSIVE METABOLIC PANEL(Performed 01/12/2019) Performed for Cervical stenosis of spine, Osteoarthritis of cervical spine with myelopathy, Osteoarthritis of spine with radiculopathy, cervical region * CBC W AUTO DIFFERENTIAL(Performed 01/12/2019) Performed for Cervical stenosis of spine, Osteoarthritis of cervical spine with myelopathy, Osteoarthritis of spine with radiculopathy, cervical region * PTT [facility](Performed 01/12/2019) Performed for Cervical stenosis of spine, Osteoarthritis of cervical spine with myelopathy, Osteoarthritis of spine with radiculopathy, cervical region * PT-INR [facility](Performed 01/12/2019) Performed for Cervical stenosis of spine, Osteoarthritis of cervical spine with myelopathy, Osteoarthritis of spine with radiculopathy, cervical region * CULTURE URINE(Performed 01/12/2019) Performed for Cervical stenosis of spine, Osteoarthritis of cervical spine with myelopathy, Osteoarthritis of spine with radiculopathy, cervical region * XR CERVICAL SPINE 2 OR 3VW(Performed 10/31/2018) Performed for Neck pain * CARDIAC RHYTHM STRIP ORDER(Performed 09/29/2018) * IR NERVE BLOCK C OR T UNILAT(Performed 09/28/2018) Performed for Radiculopathy of cervical region * CARDIAC RHYTHM STRIP ORDER(Performed 09/20/2018) * CARDIAC EKG ORDER(Performed 09/20/2018) * IR NERVE BLOCK C OR T UNILAT(Performed 09/19/2018) Performed for Cervical radiculopathy * XR CHEST 2VW(Performed 09/19/2018) Performed for Bradycardia * BASIC METABOLIC PANEL (CALCIUM TOTAL)(Performed 09/19/2018) * CBC W AUTO DIFFERENTIAL(Performed 09/19/2018) * EKG 12-LEAD(Performed 09/19/2018) Performed for Bradycardia * XR CERVICAL SPINE 2 OR 3VW(Performed 05/27/2018) Performed for Neck pain Results * XR CERVICAL SPINE 2 OR 3VW (05/19/2021 9:16 AM DELINQUENT TAX COLLECTOR) Only the most recent of10 resultswithin the time period is included. Anatomical Region Laterality Modality Spine Radiographic Ana ging 05/19/2021 9:46 AM DELINQUENT TAX COLLECTOR Impressions 05/19/2021 9:55 AM DELINQUENT TAX COLLECTOR IMPRESSION: Posterior instrument spinal fusion of C2-T2, unchanged in alignment. Dictated by Edyta Stevenson MD (president/gm production & live experiences). I, Dr. FELIZ ISDDIQUI MD have personally reviewed and interpreted this examination/study. This report was electronically signed by FELIZ SIDDIQUI MD on 05/19/2021 9:55 AM . Narrative 05/19/2021 9:55 AM DELINQUENT TAX COLLECTOR EXAMINATION: XR CERVICAL SPINE 2 VW HISTORY: M54.2: Neck pain COMPARISON: Cervical spine radiograph dated 01/13/2021 FINDINGS: Redemonstration of posterior spinal fusion with bilateral screws and rods of C2-T2. Hardware appears intact. The alignment is unchanged. Laminectomies noted. There is redemonstration of moderate multilevel degenerative disease with a compression deformity of C7 with greater than 50 percent height loss, unchanged from prior exam. Procedure Note Feliz Siddiqui MD - 05/19/2021 EXAMINATION: XR CERVICAL SPINE 2 VW HISTORY: M54.2: Neck pain COMPARISON: Cervical spine radiograph dated 01/13/2021 FINDINGS: Redemonstration of posterior spinal fusion with bilateral screws androds of C2-T2. Hardware appears intact. The alignment is unchanged. Laminectomies noted. There is redemonstration of moderate multilevel degenerative disease with a compression deformity of C7 with greaterthan 50 percent height loss, unchanged from prior exam. IMPRESSION: Posterior instrument spinal fusion of C2-T2, unchanged in alignment. Dictated by Edyta Stevenson MD (president/gm production & live experiences). I, Dr. FELIZ SIDDIQUI MD have personally reviewed and interpreted this examination/study. This report was electronically signed by FELIZ SIDDIQUI MD on05/19/2021 9:55 AM . Ankur Ghosh MD DIAGNOSTIC IMAGING O RDERABLES * (ABNORMAL) CBC W AUTO DIFFERENTIAL (01/24/2019 2:45 AM DELINQUENT TAX COLLECTOR) Only the most recent of7 resultswithin the time period is included. WBC 8.3 3.5 - 10.5 10 3/uL 01/24/2019 4:26 AM [facility] RBC 4.06(L) 4.30 - 5.70 10 6/uL 01/24/2019 4:26 AM [facility] Hemoglobin 11.5(L) 13.5 - 17.5 g/dL 01/24/2019 4:26 AM [facility] Hematocrit 34.0(L) 39.0 - 50.0 % 01/24/2019 4:26 AM [facility] MCV 83.7 81.0 - 97.0 fL 01/24/2019 4:26 AM [facility] MCH 28.3 28.0 - 34.0 pg 01/24/2019 4:26 AM [facility] MCHC 33.8 32.0 - 36.0 g/dL 01/24/2019 4:26 AM [facility] Platelet Count 197 150 - 400 10 3/uL 01/24/2019 4:26 AM [facility] RDW-SD 39.9 36.0 - 50.0 fL 01/24/2019 4:26 AM [facility] RDW-CV 13.2 11.2 - 14.8 % 01/24/2019 4:26 AM [facility] MPV 9.8 9.3 - 12.8 fL 01/24/2019 4:26 AM [facility] nRBC Absolute 0.00 0 10 3/uL 01/24/2019 4:26 AM [facility] nRBC Auto 0.0 0 /100 WBC 01/24/2019 4:26 AM [facility] Neutrophils % 79.1(H) 35.0 - 70.0 % 01/24/2019 4:26 AM [facility] Lymphocytes % 7.6(L) 19.7 - 55.1 % 01/24/2019 4:26 AM [facility] Monocytes % 9.9 3.0 - 15.0 % 01/24/2019 4:26 AM [facility] Eosinophils % 2.4 0.0 - 6.0 % 01/24/2019 4:26 AM [facility] Basophil % 0.6 0.0 - 1.5 % 01/24/2019 4:26 AM [facility] Neutrophils Absolute 6.6 1.6 - 7.0 10 3/uL 01/24/2019 4:26 AM [facility] Lymphocyte Absolute 0.6(L) 0.8 - 2.9 10 3/uL 01/24/2019 4:26 AM [facility] Monocytes Absolute 0.82(H) 0.14 - 0.66 10 3/uL 01/24/2019 4:26 AM [facility] Eosinophils Absolute 0.20 0.00 - 0.45 10 3/uL 01/24/2019 4:26 AM [facility] Basophils Absolute 0.05 0.00 - 0.06 10 3/uL 01/24/2019 4:26 AM [facility] Immature Granulocytes % 0.4 0.0 - 1.0 % 01/24/2019 4:26 AM [facility] Blood BLOOD SPECIMEN / Unknown Lab Venipuncture / Unknown 01/24/2019 2:45 AM DELINQUENT TAX COLLECTOR 01/24/2019 4:16 AM DELINQUENT TAX COLLECTOR Bryon Plata MD LAB - HEMATOLOGY ORD ERABLES [facility] [address] [phone] * (ABNORMAL) BASIC METABOLIC PANEL (CALCIUM TOTAL) (01/22/2019 1:53 AM CDT) Only the most recent of4 resultswithin the time period is included. BUN 15 7 - 26 mg/dL 01/22/2019 2:25 AM [facility] Creatinine 0.9 0.6 - 1.2 mg/dL 01/22/2019 2:25 AM [facility] Sodium 137 136 - 145 mmol/L 01/22/2019 2:25 AM [facility] Potassium 3.6 3.5 - 4.5 mmol/L 01/22/2019 2:25 AM [facility] Chloride 102 98 - 107 mmol/L 01/22/2019 2:25 AM [facility] CO2 28 22 - 29 mmol/L 01/22/2019 2:25 AM [facility] Glucose 136(H) 70 - 115 mg/dL 01/22/2019 2:25 AM [facility] Calcium 8.6 8.4 - 10.2 mg/dL 01/22/2019 2:25 AM [facility] Anion Gap 11 8 - 18 01/22/2019 2:25 AM [facility] BUN/Creatinine Ratio 17 7 - 23 01/22/2019 2:25 AM [facility] Osmolality Calculated 287 270 - 300 mOsm/kg 01/22/2019 2:25 AM [facility] eGFR >60 >60 mL/min/1.7 3 m2 01/22/2019 2:25 AM [facility] Blood BLOOD SPECIMEN / Unknown Lab Venipuncture / Unknown 01/22/2019 1:53 AM CDT 01/22/2019 1:36 AM CDT Bryon Plata MD LAB - CHEMISTRY HILARY [place]VAL[place] [facility] [address] [place] [address] * XR THORACIC SPINE 2 VW (01/20/2019 10:35 PM CDT) Anatomical Region Laterality Modality Spine Radiographic Ana ging 01/21/2019 8:21 AM CDT Impressions 01/22/2019 7:52 AM DELINQUENT TAX COLLECTOR FINDINGS/IMPRESSION: No prior study is available for comparison at the time of this dictation. There is interval postoperative findings from a partially imaged cervicothoracic spinal fixation. The vertebral bodies are normally aligned. There is no fracture or compression deformity. There is moderate to severe intervertebral disc space height loss. Dictated by Jose Antonio Wilburn MD (president/gm production & live experiences). Dr. MILAN Carey have personally reviewed and interpreted this examination/study. This report was electronically signed by MILAN CRUZ on 01/22/2019 7:52 AM . Narrative 01/22/2019 7:52 AM DELINQUENT TAX COLLECTOR EXAMINATION: XR THORACIC SPINE 2VW HISTORY: post-op Procedure Note Milan Cruz DO - 01/22/2019 EXAMINATION: XR THORACIC SPINE 2VW HISTORY: post-op FINDINGS/IMPRESSION: No prior study is available for comparison at the time of this dictation. There is interval postoperative findings from a partially imaged cervicothoracic spinal fixation. The vertebral bodies are normally aligned. There is no fracture or compression deformity. There ismoderate to severe intervertebral disc space height loss. Dictated by Jose Antonio Wilburn MD (president/gm production & live experiences). Dr. MILAN Carey have personally reviewed and interpreted this examination/study. This report was electronically signed by MILAN CRUZ on 01/22/2019 7:52 AM . Bryon Plata MD DIAGNOSTIC IMAGING O RDERABLES * [place] [facility] SURGERY (01/19/2019 3:06 PM CDT) Narrative [facility] - 01/19/2019 3:08 PM CDT Fluoroscopy was used for this exam in the OR. Please see the Operative report. Josep Armando MD FLUOROSCOPY ORDERABL ES [facility] * (ABNORMAL) BLOOD GASES ART COMPLETE [facility] OR (01/19/2019 2:08 PM [facility]) Only the most recent of3 resultswithin the time period is included. pH Arterial 7.34(L) 7.35 - 7.45 01/19/2019 2:11 PM [facility] pCO2 Arterial 45 35 - 45 mmHg 01/19/2019 2:11 PM [facility] pO2 Arterial 159(H) 71 - 95 mmHg 01/19/2019 2:11 PM [facility] HCO3 Arterial 23.5 22.0 - 26.0 mmol/L 01/19/2019 2:11 PM [facility] TCO2 Arterial 24.9(L) 25.0 - 29.0 mmol/L 01/19/2019 2:11 PM [facility] Base Excess Arterial -2.4(L) -2.0 - 2.0 mmol/L 01/19/2019 2:11 PM [facility] Hemoglobin Arterial 13.0(L) 13.5 - 17.5 g/dL 01/19/2019 2:11 PM [facility] Oxyhemoglobin Arterial 97.8 95.0 - 100.0 % 01/19/2019 2:11 PM [facility] Carboxyhemoglobin 0.3 0.0 - 3.0 % 01/19/2019 2:11 PM [facility] Methemoglobin 0.5 0.0 - 2.0 % 01/19/2019 2:11 PM [facility] FI O2 Arterial 60.0 % 01/19/2019 2:11 PM [facility] Ionized Calcium Whole Blood 1.08 mmol/L 01/19/2019 2:11 PM [facility] Adjusted Ionized Calcium 1.05(L) 1.19 - 1.34 mmol/L 01/19/2019 2:11 PM [facility] Sodium Whole Blood 136 135 - 145 mmol/L 01/19/2019 2:11 PM [facility] Potassium Whole Blood 4.2 3.5 - 5.5 mmol/L 01/19/2019 2:11 PM CDT [facility] Chloride Whole Blood 103 101 - 111 mmol/L 01/19/2019 2:11 PM CDT [facility] Glucose Whole Blood 179(H) 70 - 110 mg/dL 01/19/2019 2:11 PM CDT [facility] Lactic Acid Whole Blood 1.7 0.5 - 3.4 mmol/L 01/19/2019 2:11 PM CDT [facility] Blood ARTERIAL BLOOD SPECIMEN / Unknown Venipuncture / Unknown 01/19/2019 2:08 PM CDT 01/19/2019 2:08 PM CDT Chrissy Hwang MD LAB - BLOOD GASES OR DERABLES [facility] [address] [place] [address] * ARTERIAL LINE PERFORMABLE (01/19/2019 11:14 AM CDT) Narrative Yoni Peres - 01/19/2019 11:14 AM CDT Yoni Peres DO 01/19/2019 11:15 AM Arterial Line Placement Procedure Note Patient Location: OR. Procedure: Arterial Line ([id number]). Procedure Section Indications: continuous blood pressure monitoring and blood sampling needed. Consent: informed consent was obtained for the procedure. Skin Prep: Chloraprep. Location: right radial. Sterile Technique: cap, mask and sterile gloves. Gauge: 20. Seldinger Technique Used? Yes Number of Attempts: 1. Line Secured with: tape and Tegaderm. Procedure Tolerance: performed while patient under general anesthesia. Events: none. Staff Section Anesthesia Provider: Yoni Peres DO, Performed the procedure Julissa Walls MD GENERAL ANESTHESIA O RDERABLES * ETT LINE PERFORMABLE (01/19/2019 8:36 AM CDT) Narrative Yoni Peres - 01/19/2019 8:36 AM CDT Yoni Peres DO 01/19/2019 8:45 AM Endotracheal Tube Placement: Patient Location: OR. Intubation Event Date/Time: 01/19/2019 7:50 AM Procedure: intubation ([id number]). Procedure Section: Sedation: IV sedation. Indications for Airway Management: airway protection Procedure pretreatments used? Nursing documentation on the [facility] Procedure Pretreatments (manual): 100% O2 Induction: standard IV Patient Position: sniffing Mask Ventilation: difficult and required 2 people (2 handed) (Armstrong, large jaw ). Blade Type: Video (D-Blade) Laryngoscopy View: grade 1 (full cords) Intubation Adjuncts: stylet and cricoid pressure Tube: endotracheal tube Placement: oral Tube type: cuff - inflated Tube Size (MM): 8 Depth of Insertion (CM): 23 Measured From: gums Cuff volume (mL): 10 Cuff Inflated With: air Number of Attempts: 3. Placement Verified By: direct visualization, bilateral breath sounds and CO2 monitor Tube secured with: adhesive tape. Difficult Airway? Yes. Technique: video laryngoscope Reason: obesity and neck immobility Procedure Start Time: 01/19/2019 7:50 AM. Staff Section Anesthesia Provider: Yoni Prees DO, Performed the procedure Provider #1: Julissa Walls MD. Provider #2: Ar Blanchard MD. Additional Comments: Anterior even with aggressive bend in ETT. Succesffully placed by attending with video scope. Julissa Walls MD GENERAL ANESTHESIA O RDERABLES * TYPE + SCREEN PANEL (01/19/2019 6:46 AM CDT) Only the most recent of2 resultswithin the time period is included. Antibody Screen NEG 9 8:08 AM CDT [facility] ABO Rh A NEG 01/19/2019 8:08 AM CDT [facility] Blood Bank BLOOD SPECIMEN / Unknown Venipuncture / Unknown 01/19/2019 6:46 AM CDT 01/19/2019 7:09 AM CDT Rae Ochoa ENGROSSER-PHLEBOTOMY COORDINATOR LAB - BLO OD BANK ORDERABLES [facility] [address] * XR CHEST 1VW (01/12/2019 11:17 AM CDT) Anatomical Region Laterality Modality Chest Radiographic Ana ging 01/12/2019 2:27 PM CDT Impressions 01/12/2019 2:41 PM CDT IMPRESSION: Trace left pleural effusion and associated atelectasis/airspace opacification. Elevated diaphragm. Dictated by Roberta Vu MD (Resident). Dr. SHYANNE Carey M.D. have personally reviewed and interpreted this examination/study. This report was electronically signed by SHYANNE SARMIENTO M.D. on 01/12/2019 2:41 PM . 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 FINDINGS: There is a trace left pleural effusion with associated atelectasis/airspace opacification. There is eventration of the right hemidiaphragm. There is no pneumothorax. The cardiomediastinal silhouette is partially obscured. Calcified lung granulomas are present bilaterally. The visible bony thorax is intact. 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 FINDINGS: There is a trace left pleural effusion with associated atelectasis/airspace opacification. There is eventration of the right hemidiaphragm. There is no pneumothorax. The cardiomediastinalsilhouette is partially obscured. Calcified lung granulomas are presentbilaterally. The visible bony thorax is intact. IMPRESSION: Trace left pleural effusion and associated atelectasis/airspace opacification. Elevated diaphragm. Dictated by Roberta Vu MD (Resident). Dr. SHYANNE Carey M.D. have personally reviewed and interpreted this examination/study. This report was electronically signed by SHYANNE SARMIENTO M.D. on 01/12/2019 2:41 PM . Josep Armando MD DIAGNOSTIC IMAGING O RDERABLES * PTT [facility] (01/12/2019 11:01 AM CDT) APTT 25.8 23.0 - 38.4 Seconds 01/12/2019 12:02 PM [facility] Comment: * Please Note: New therapeutic range for heparin therapy. * Suggested therapeutic range for full dose I.V. heparin therapy for venous thromboembolism is 65 to 103 seconds. Blood BLOOD SPECIMEN / Unknown Lab Venipuncture / Unknown 01/12/2019 11:01 AM CDT 01/12/2019 11:29 AM CDT Josep Armando MD LAB - COAGULATION OR DERABLES [address] [phone] * PT-INR [facility] (01/12/2019 11:01 AM CDT) Pathologist [facility] PT 12.8 12.1 - 14.8 Seconds 01/12/2019 11:58 AM [facility] INR 1.0 See Comment 01/12/2019 11:58 AM [facility] Comment: The suggested therapeutic range for standard coumadin (warfarin) therapy is an INR of 2.0-3.0. For high-risk patients (Mechanical Mitral Valve Prosthesis, etc.), the suggested prophylactic therapeutic range is an INR of 2.5-3.5. Blood BLOOD SPECIMEN / Unknown Lab Venipuncture / Unknown 01/12/2019 11:01 AM CDT 01/12/2019 11:29 AM CDT Josep Armando MD LAB - COAGULATION OR DERABLES [facility] [address] [phone] * (ABNORMAL) URINALYSIS W/MICROSCOPIC NO CULTURE (01/12/2019 11:01 AM [facility]) Color UA Yellow Straw, Yellow, Colorless 01/12/2019 11:53 AM [facility] Clarity UA Slt Cloudy Clear, t Cloudy 01/12/2019 11:53 AM [facility] Specific [place] UA 1.017 1.005 - 1.030 01/12/2019 11:53 AM [facility] pH UA 5.0 5.0 - 8.0 pH 01/12/2019 11:53 AM [facility] Protein UA Negative Negative mg/dL 01/12/2019 11:53 AM [facility] Glucose UA Negative Negative mg/dL 01/12/2019 11:53 AM [facility] Ketone UA Negative Negative mg/dL 01/12/2019 11:53 AM [facility] Bilirubin UA Negative Negative mg/dL 01/12/2019 11:53 AM [facility] Blood UA 1+(A) Negative 01/12/2019 11:53 AM [facility] Nitrite UA Negative Negative 01/12/2019 11:53 AM [facility] Leukocyte Esterase Negative Negative 01/12/2019 11:53 AM [facility] Urobilinogen UA Negative Negative mg/dL 01/12/2019 11:53 AM [facility] RBC UA 0-2 None Seen, 0-2, 3-5 /HPF 01/12/2019 11:53 AM [facility] WBC UA 0-5 None Seen, 0-5 /HPF 01/12/2019 11:53 AM [facility] Bacteria UA Trace None, Trace /HPF 01/12/2019 11:53 AM [facility] Squamous Epithelial Cells UA 0-2 None Seen, 0-2 /HPF 01/12/2019 11:53 AM [facility] Mucus UA 1+ None, 1+ /LPF 01/12/2019 11:53 AM [facility] Urine URINE SPECIMEN OBTAINED BY CLEAN CATCH PROCEDURE / Unknown Collection / Unknown 01/12/2019 11:01 AM CDT 01/12/2019 11:29 AM CDT Narrative [facility] - 01/12/2019 11:53 AM CDT Josep Armando MD LAB - URINALYSIS ORD ERABLES Performing Organization Address City/[facility]/ZIP Co de Phone Number [facility] [address] [phone] * CULTURE URINE (01/12/2019 11:01 AM CDT) Culture Urine <10,000 CFU/mL urogenital marcia SPENCER 01/14/2019 6:46 AM CDT [facility] MICROBIOLOGY Urine URINE SPECIMEN OBTAINED BY CLEAN CATCH PROCEDURE / Unknown Collection / Unknown 01/12/2019 11:01 AM CDT 01/12/2019 11:29 AM CDT Josep Armando MD LAB - MICROBIOLOGY O RDERABLES [facility] MICROBIOLOGY [address] [phone] * COMPREHENSIVE METABOLIC PANEL (01/12/2019 11:01 AM CDT) BUN 16 7 - 26 mg/dL 01/12/2019 12:07 PM [facility] Creatinine 1.1 0.6 - 1.2 mg/dL 01/12/2019 12:07 PM [facility] Sodium 140 136 - 145 mmol/L 01/12/2019 12:07 PM [facility] Potassium 4.1 3.5 - 4.5 mmol/L 01/12/2019 12:07 PM [facility] Chloride 105 98 - 107 mmol/L 01/12/2019 12:07 PM [facility] CO2 27 22 - 29 mmol/L 01/12/2019 12:07 PM [facility] Glucose 95 70 - 115 mg/dL 01/12/2019 12:07 PM [facility] Calcium 9.6 8.4 - 10.2 mg/dL 01/12/2019 12:07 PM [facility] Protein Total 7.2 6.0 - 8.3 g/dL 01/12/2019 12:07 PM [facility] Albumin 4.1 3.4 - 5.0 g/dL 01/12/2019 12:07 [facility] Bilirubin Total 0.7 0.2 - 1.2 mg/dL 01/12/2019 12:07 PM [facility] Alkaline Phosphatase 62 40 - 150 Units/L 01/12/2019 12:07 PM [facility] ALT 13 0 - 55 Units/L 01/12/2019 12:07 PM [facility] AST 18 5 - 34 Units/L 01/12/2019 12:07 PM [facility] Anion Gap 12 8 - 18 01/12/2019 12:07 [facility] BUN/Creatinine Ratio 15 7 - 23 01/12/2019 12:07 PM [facility] Osmolality Calculated 291 270 - 300 mOsm/kg 01/12/2019 12:07 [facility] Albumin/Globulin Ratio 1.3 1.1 - 2.3 01/12/2019 12:07 PM [facility] eGFR >60 >60 mL/min/1.7 3 m2 01/12/2019 12:07 PM [facility] Blood BLOOD SPECIMEN / Unknown Lab Venipuncture / Unknown 01/12/2019 11:01 AM CDT 01/12/2019 11:29 AM CDT Josep Armando MD LAB - CHEMISTRY [facility] Organization Address City/State/[facility] Co de Phone Number [address] [phone] * CARDIAC RHYTHM STRIP ORDER (09/29/2018 12:36 PM CDT) Only the most recent of2 resultswithin the time period is included. Narrative 09/29/2018 12:36 PM CDT Ordered by an unspecified provider. Scanned Document CARDIAC SERVICES ORD ERABLES * IR NERVE BLOCK C OR T UNILAT (09/28/2018 2:31 PM CDT) Only the most recent of2 resultswithin the time period is included. Anatomical Region Laterality Modality Computed Tomogra phy Narrative 09/30/2018 3:59 PM CDT History: 73-year-old with cervical radiculopathy. Operators: 1. Dr. Rashel Warren, Attending Physician 2. Dr. Lal, Resident Physician Anesthesia: Local with 5 mL of 1% lidocaine. Procedure: 1. CT of the cervical spine. 2. CT guided right C5-6 transforaminal epidural steroid injection. Contrast: 1 mL of Isovue 200 Procedure details: The procedure, risks, and possible complications were explained to the patient in detail, and informed consent was obtained. The patient was placed prone on the CT table. The patient's neck was prepped and draped in the usual sterile manner. Pre-procedure CT was done in the region of interest, and the needle entry site was marked on the lower back. After injection of 1% lidocaine for local anesthesia, a 22-gauge 3.5-inch spinal needle was advanced to the posterior aspect of the right C5-6 neural foramen. Contrast was injected and confirmed proper positioning as it was seen outlining the nerve root without evidence of intravascular needle placement. Subsequently, a mixture of 1 mL betamethasone (6 mg/mL) and 1 mL 0.5% bupivacaine was injected. The needle was removed, and sterile dressing was applied. The patient tolerated the procedure well and was transferred to the holding area in stable condition. There were no immediate complications associated with the procedure. The patient's pain level before the procedure was 7/10. The patient's pain level after the procedure was 2/10. Impression: Right C5-6 transforaminal epidural steroid injection under CT guidance. Dr. Warren performed/was present throughout the procedure. This report was dictated by Dane Lal M.D. (Finance Admin). Dictated by Dane Lal on 09/28/2018 4:21 PM I, Rashel Warren, have personally reviewed the images and I agree with this report. Reading Radiologist: Rashel Warren MD on 09/30/2018 at 3:59 PM Josep Armando MD IR ORDERABLES * CARDIAC EKG ORDER (09/20/2018 10:31 AM CDT) Narrative 09/20/2018 10:31 AM CDT Ordered by an unspecified provider. Scanned Document CARDIAC SERVICES ORD ERABLES * XR CHEST PA AND LATERAL (09/19/2018 12:33 PM CDT) Anatomical Region Laterality Modality Chest Radiographic Ana ging 09/19/2018 12:3 7 PM CDT Narrative 09/19/2018 12:37 PM CDT Exam: PA and lateral views of the chest. History: Bradycardia, unspecified Findings/Impression: There is elevation of the left hemidiaphragm. No focal consolidation, pleural effusion, or pneumothorax is identified. There are calcified mediastinal lymph nodes likely representing the sequela of prior granulomatous disease. The cardiac silhouette and mediastinal contours are normal. There is eventration of the right hemidiaphragm. Reading Radiologist: Georges Lechuga MD on 09/19/2018 at 12:37 PM Procedure Note Georges Lechuga MD - 09/19/2018 Exam: PA and lateral views of the chest. History: Bradycardia, unspecified Findings/Impression: There is elevation of the left hemidiaphragm. No focal consolidation, pleural effusion, or pneumothorax is identified. There are calcified mediastinal lymph nodes likely representing the sequela of prior granulomatous disease. The cardiac silhouette and mediastinal contours are normal. There is eventration of the right hemidiaphragm. Reading Radiologist: Georges Lechuga MD on 09/19/2018 at 12:37 PM Zack Cueva MD DIAGNOSTIC IMAGING O RDERABLES * EKG 12-LEAD (09/19/2018 11:17 AM CDT) Ventricular Rate 69 BPM [facility] Atrial Rate 69 BPM [facility] P-R Interval 232 ms [facility] QRS Duration ms 84 ms [facility] Q-T Interval ms 384 ms [facility] QTC Calculation (Bezet) 411 ms [facility] Calculated P [place] 43 degrees [facility] Calculated R [place] 1 degrees [facility] Calculated T [place] 16 degrees [facility] Interpretation EKG NORMAL SINUS RHYTHM poor baseline OTHERWISE NORMAL ECG OTHERWISE NORMAL ECG NO PREVIOUS ECGS AVAILABLE Confirmed by MD BRANDY, [place] Elizabeth ([id number]) on 09/20/2018 6:16:04 PM [facility] 09/19/2018 11:1 7 AM CDT 09/20/2018 6:16 PM CDT Zack Cueva MD ECG ORDERABLES [facility] Care Teams Business Practices Supervisor Relationship Specialty Start Date End Date Riki Watson MD [address] [place] [address] PCP - General 05/04/18
--- NOTE | 2024-06-04 16:03 | ED_ITS ---
HPI - General Adult General Chief complaint: Extremity Injury, Upper Stated complaint: fall Time Seen by Provider: 06/04/24 16:00 History of Present Illness HPI narrative: Fredrick is an 79M with a PMH of obesity, HFpEF, CVA, BPH, HLD that presented to the ED for pain in his right elbow. It started after he tripped and fell on it 2 days ago but was not improving so he came to the ED. No other injuries reported. Related Data Home Medications ?Medication ?Instructions ?Recorded ?Confirmed ?Last Taken ?Type aspirin 81 mg tablet,delayed 81 mg PO DAILY 08/03/23 05/10/24 Unknown History release Allergies Allergy/AdvReac Type Severity Reaction Status Date / Time morphine AdvReac Hallucinati Verified 06/04/24 16:24 ng Review of Systems Review of Systems: All systems reviewed & are unremarkable except as noted in HPI and below PMFSH Past Medical History Medical History Viral upper respiratory illness Bladder stone Right knee pain Elevated blood pressure reading in office without diagnosis of hypertension Ceruminosis Surgical History Surgical History History of carpal tunnel surgery of right wrist History of tonsillectomy and adenoidectomy History of hernia repair History of fusion of cervical spine 01/19/2019 Family History Family History Mother Acute myocardial infarction Brother Acute myocardial infarction Social History Social History Smoking status: Never smoker Second hand tobacco smoke exposure: No Alcohol intake: never Substance use: never Substance use type: does not use Lack of Transportation: No Lack of Food: Never True Current Housing: I Have Housing Concerned About Future Housing: No Difficulty Paying Gas/Electric Bills: No Difficulty Paying for Meds: No Currently Unemployed: No Education: High School Diploma/GED Difficulty w/ Childcare or Family Care: No Living arrangements: with friend(s) Additional living arrangements comments: [facility] [place] Occupation/Education: retired 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 Gender identity (if verbalized by the patient): Male Sexual Orientation (if Verbalized by the Patient): Straight or Heterosexual Spiritual care concerns: No Exam Const: General: cooperative, healthy appearing, comfortable, no acute distress, well developed, alert, awake and Physically active Orientation/consciousness: oriented to person, oriented to place and oriented to time Other: ambulates with a cane HENMT: Head: normal to inspection, normocephalic and atraumatic Ears: hearing grossly normal bilaterally and external ears normal Face/Nose/Sinus: Normal external nose present Eyes: General: appearance normal, both eyes and all related structures Periorbital: periorbital findings normal Sclera: sclerae normal Pupils: Equal, round and reactive pupils present Neck: Neck: normal visual inspection Chest: Chest palpation & inspection: normal inspection of the chest Resp: Effort & Inspection: normal respiratory effort, able to speak in complete sentences and no respiratory distress Cardio: Jugular venous distension: no JVD Rate: regular rate GI: Inspection: normal to inspection Skin: General skin exam: normal color and no rashes or lesions noted Neuro: General: oriented to person, oriented to place and oriented to time Cranial nerves: Yes Equal, round and reactive pupils present Extrem: General: normal to inspection Other: right elbow was swollen and TTP Course Course Emergency Course: Given Suches for pain. EXAM: XR elbow RT min 3V DATE: 06/04/2024 16:12 HISTORY: Fall, Rt. elbow pain . COMPARISON: None available. FINDINGS: Normal mineralization. Subtle cortical lucencies in the radial head. No lytic or blastic lesion. Severe degenerative change at the right elbow joint, with multiple loose bodies/old well-corticated fracture fragments. Minimal olecranon enthesopathy. No erosion or periosteal change. Elbow joint effusion. IMPRESSION: Likely nondisplaced radial head fracture. Severe elbow osteoarthritis. Elbow joint effusion. ordered swath and sling. Instructed to f/u in clinic for futher care Vital Signs Vital signs: Vital Signs Temperature 97.7 F 06/04/24 15:49 Pulse Rate 77 06/04/24 15:49 Respiratory Rate 18 06/04/24 15:49 Blood Pressure 159/95 H 06/04/24 15:49 Pulse Oximetry 95 06/04/24 15:49 Oxygen Delivery Room Air 06/04/24 15:49 Temperature 97.7 F 06/04/24 15:49 Pulse Rate 77 06/04/24 15:49 Respiratory Rate 18 06/04/24 15:49 Blood Pressure 159/95 H 06/04/24 15:49 Pulse Oximetry 95 06/04/24 15:49 Oxygen Delivery Room Air 06/04/24 15:49 Medical Decision Making Vital Signs Vital Signs: Vital Signs Temperature 97.7 F 06/04/24 15:49 Pulse Rate 77 06/04/24 15:49 Respiratory Rate 18 06/04/24 15:49 Blood Pressure 159/95 H 06/04/24 15:49 Pulse Oximetry 95 06/04/24 15:49 Oxygen Delivery Room Air 06/04/24 15:49 Temperature 97.7 F 06/04/24 15:49 Pulse Rate 77 06/04/24 15:49 Respiratory Rate 18 06/04/24 15:49 Blood Pressure 159/95 H 06/04/24 15:49 Pulse Oximetry 95 06/04/24 15:49 Oxygen Delivery Room Air 06/04/24 15:49 Discharge Plan Discharge Clinical Impression: Closed fracture of head of right radius Patient Disposition: Home, Self-Care Condition: Stable Instructions: How to Use a Sling (ED) Patient Language: Pashto Prescriptions: New hydrocodone-acetaminophen 5-325 mg tablet 1 tablet PO Q8H PRN (Reason: pain) Qty: 10 0RF No Action finasteride 5 mg tablet 5 mg PO DAILY Qty: 90 0RF tamsulosin 0.4 mg capsule 0.4 mg PO HS Qty: 90 0RF terbinafine HCl 250 mg tablet 250 mg PO DAILY Qty: 14 0RF pregabalin 225 mg capsule 225 mg PO BID Qty: 60 2RF aspirin 81 mg tablet,delayed release (DR/EC) 81 mg PO DAILY atorvastatin 40 mg tablet See Rx Instructions .ROUTE .COMPLEX Qty: 90 2RF Dose Instruction: TAKE ONE TABLET BY MOUTH DAILY Rx Instructions: TAKE ONE TABLET BY MOUTH DAILY levothyroxine [Unithroid] 50 mcg tablet 50 mcg PO DAILY Qty: 90 0RF Follow-up/Referrals: Mitesh Garcia DO [Primary Care Provider] -
--- OUTSIDE RECORDS SUMMARY | 2024-06-04 16:05 | XMS_ITS | Continuity of Care Document ---
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 Name Role Phone Ricardo Smith MD, FACS Unavailable Unavailab le Procedures Procedure Date After Cataract Laser Surgery Office/outpatient Visit, [facility] No Charge Optomap Fundus Photos 013 [...] Providers Copied on Encounter Office/outpa tient Visit, [facility], [address] [place] [address] [address], [place], [place], [id number], [place] tel:[phone] SEC Rigo VALERO Professional a comprehensive exam (chief complaint)a comprehensive exam (chief complaint)a comprehensive exam (chief complaint) AFTR-CATAR [employer]SCUR VISION Oct-0 8-201 3 Luis Silva. [address] [place] [address], [address], [place], [place], [id number], [place]. tel:[phone] Referring Provider: Leandra Ward OD, [facility] [address] [facility], [place], [address]. tel:[phone] Family History Family Member Type Diagnosis Age At Onset Brother Problem (finding) diabetes dianai aarons in first degree relative Problem (finding) Payers Payer name Insurance type Covered green party ID Authoriza tion(s) [place] [id number] Social History Type Description Quantity Date Captured [...]
--- OUTSIDE RECORDS SUMMARY | 2024-06-04 16:05 | XMS_ITS | CONTINUITY OF CARE DOCUMENT ---
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
[2024-06-04] MEDS: HYDROcodone/acetaminophen (*CRX) 5-325 MG TABLET 1 TAB PO (16:22)
[2024-06-04 17:26] VITALS: BP 151/100; PULSE 68; RESP 20; TEMP 36.7; O2SAT 96
== END 2024-06-04 17:33 | disposition home or self-care (01) ==
PROVIDERS: Emergency Provider Family Medicine; PCP Family Medicine
DX: S52.121A Displaced fracture of head of right radius, initial encounter for closed fracture (principal); E78.5 Hyperlipidemia, unspecified; Z86.73 Personal history of transient ischemic attack (TIA), and cerebral infarction without residual deficits; W01.0XXA Fall on same level from slipping, tripping and stumbling without subsequent striking against object, initial encounter
CPT/HCPCS: 73080; 99284; A9270; L3670

== ENCOUNTER 2024-06-20 09:35 | Outpatient (RCR) | payer MEDICARE, SELFPAY ==
--- NOTE | 2024-06-21 16:03 | BUOTOPEVAL ---
Assessment and note entered by Leslie Rossi OT Evaluation Information Assessment Status Evaluation Diagnosis Displaced fracture of head of unspecified radius, initial encounter ICD-10 Condition Codes (OT) Joint stiffness of right wrist M25.631,Joint stiffness of right elbow M25.621,Pain in right hand M79.641,Pain in right elbow M25.521 Reported Pain Level Pain Score 8: Self Report Assessment OT Clinical Summary The patient is an 79 year old male who was referred to outpatient OT due to displaced fracture of head of R radius. 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 The patient now demonstrates significant dysfunction of R UE through severe pain and sensation deficits which affect his ability to perform daily tasks using a grasp without discomfort. He demonstrates limited wrist mobility due to disuse of UE. The patient requires skilled OT to address deficits and return to PLOF in order to avoid pain during daily tasks. Plan of Care Interventions Therapeutic Exercise,Manual Therapy,Neuro Re- education,Therapeutic Activities,Hot Pack/Cold Pack,Electrical Stimulation,Sensory Integrative Techniques,Self-Care/Home Management,Prosthetic Training,Ultrasound OT Services Indicated Yes Treatment Frequency and 2x/week for 10 visits. Duration These treatments will address the objective and functional deficits as defined above. The patient will be advanced safely and appropriately in order for the patient to progress towards his/her prior level of function. Additional exercises will be introduced and as well as a comprehensive home exercise program upon discharge, if needed, ?to ensure carryover of functional gains achieved in the clinic. This treatment plan has been reviewed and agreement upon by the patient.
--- NOTE | 2024-06-21 16:03 | OPREHPOC ---
Outpatient Therapy Plan of Care This is a Multidisciplinary Plan of Care that may contain components documented by all disciplines (PT, OT, and ST.) OT Problem 1 OT Problem #1 Knowledge Deficit OT Goal 1 Goal / Goal Update The patient will demonstrate 100% knowledge and return demonstration for UE HEP to decrease pain. Target Visit 10 OT Problem 2 OT Problem #2 Pain OT Goal 1 Goal / Goal Update The patient will demonstrate decrease pain of R elbow and hand with reports of <3/10 during activity in order to increase independence with ADLS. Target Visit 10 OT Goal 2 Goal / Goal Update The patient will demonstrate increased sensation of R hand reporting minimal numbness/tingling to avoid discomfort during everyday tasks. Target Visit 10 OT Goal 1 Goal / Goal Update The patient will demonstrate increased AROM of R wrist demonstrating 80 degrees supination, wrist flexion of 55 degrees, wrist extension 55 degrees in order to maintain mobility for grooming tasks. 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 Target Visit 10
--- NOTE | 2024-07-12 08:02 | BUOTOPEVAL ---
Assessment and note entered by Leslie Rossi, OT Evaluation Information Assessment Status Progress Diagnosis Displaced fracture of head of unspecified radius, initial encounter Diagnosis Displaced fracture of head of unspecified radius, initial encounter ICD-10 Condition Codes (OT) Joint stiffness of right wrist M25.631,Joint stiffness of right elbow M25.621,Pain in right hand M79.641,Pain in right elbow M25.521 Reported Pain Level Pain Score 8: Self Report Pain Score 8: Self Report Assessment OT Clinical Summary The patient demonstrates progress toward goals in pain symptoms during the day and demonstrates increased ROM of R elbow extension and wrist mobility which has increased functional use of his affected arm. 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 The patient demonstrates continued nerve symptoms that have demonstrated minimal resolve since SOC but has improved functional use of UE with increased ROM, patient scored 70.5% on QuickDASH at PN which was a slight improvement from 75% at SOC. The patient continues to require skilled OT and has been educated to call MD to determine if they want to do further testing as for nerve pain. OT has shown improvement for patient's functional use of UE, to continue for pain relief and decrease in symptoms. Plan of Care Interventions Therapeutic Exercise,Manual Therapy,Neuro Re- education,Therapeutic Activities,Sensory Integrative Techniques,Self-Care/Home Management, Prosthetic Training,Ultrasound Interventions Therapeutic Exercise,Manual Therapy,Neuro Re- education,Therapeutic Activities,Hot Pack/Cold Pack,Electrical Stimulation,Sensory Integrative Techniques,Self-Care/Home Management,Prosthetic Training,Ultrasound OT Services Indicated Yes OT Services Indicated Yes OT Services Indicated Yes OT Services Indicated Yes OT Services Indicated Yes OT Services Indicated Yes Treatment Frequency and 1-2x/week for 10 visits. Duration These treatments will address the objective and functional deficits as defined above. The patient will be advanced safely and appropriately in order for the patient to progress towards his/her prior level of function. Additional exercises will be introduced and as well as a comprehensive home exercise program upon discharge, if needed, ?to ensure carryover of functional gains achieved in the clinic. This treatment plan has been reviewed and agreement upon by the patient.
--- NOTE | 2024-07-12 08:04 | OPREHPOC ---
Outpatient Therapy Plan of Care This is a Multidisciplinary Plan of Care that may contain components documented by all disciplines (PT, OT, and ST.) OT Problem 1 OT Problem #1 Knowledge Deficit OT Goal 1 Goal / Goal Update The patient will demonstrate 100% knowledge and return demonstration for UE HEP to decrease pain. GOAL PROGRESSING; CONTINUE 07/11/2024 Target Visit 10 OT Problem 2 OT Problem #2 Pain OT Goal 1 Goal / Goal Update The patient will demonstrate decrease pain of R elbow and hand with reports of <3/10 during activity in order to increase independence with ADLS. 8/ GOAL PROGRESSING; CONTINUE 07/11/2024 5/10 pain at its best Target Visit 10 OT Goal 2 Goal / Goal Update The patient will demonstrate increased sensation of R hand reporting minimal numbness/tingling to avoid discomfort during everyday tasks. Severe numbness/tingling CONTINUE 07/11/2024 Target Visit 10 OT Goal 1 Goal / Goal Update The patient will demonstrate increased AROM of R wrist demonstrating 80 degrees supination, wrist flexion of 55 degrees, elbow extension to 15 degrees from 0 in order to maintain mobility for grooming tasks. GOAL PROGRESSING; CONTINUE 07/11/2024 Supination: 66 degrees Wrist flexion: 40 degrees Wrist extension: 52 degrees R elbow flexion: 135 degrees R elbow extension: 22 degrees from 0 Target Visit 10 OT Goal 2 Goal / Goal Update The patient will demonstrate increased launderer hand strength at >45 lbs and lateral pinch at >6 lbs in order to perform dressing tasks with independence . 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
--- NOTE | 2024-08-15 15:19 | OTOPDC ---
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 The patient demonstrates plateau in progress in pain, with continued OT treatments, the patient has pain during functional movements of arm and is unable to lift >3 lbs of weight in elbow flexion with forearm supinated due to weakness and pain. He demonstrates plateau in pinch strength and continues to have difficult time with IADLs. Although the patient has made progress with dressing, grooming and functional reach of R UE, the patient continues to have sharp , shooting pain. He demonstrates increased function of UE with score of 61% at discharge compared to 70.5% at progress note. The patient has been educated on HEP and is to follow up with MD, the patient has plateaued in progress with pain management of R UE. The patient to have nerve conduction test completed in August and to follow up with hand specialist. Therapist educated patient on HEP in the meantime and to follow up with OT if requiring continued services following consultation with hand specialist. Plan of Care OT Services Indicated No
--- NOTE | 2024-08-15 15:20 | OPREHPOC ---
Outpatient Therapy Plan of Care This is a Multidisciplinary Plan of Care that may contain components documented by all disciplines (PT, OT, and ST.) OT Problem 1 OT Problem #1 Knowledge Deficit OT Goal 1 Goal / Goal Update The patient will demonstrate 100% knowledge and return demonstration for UE HEP to decrease pain. GOAL MET; DISCONTINUE 08/15/2024 Target Visit 10 OT Problem 2 OT Problem #2 Pain OT Goal 1 Goal / Goal Update The patient will demonstrate decrease pain of R elbow and hand with reports of <3/10 during activity in order to increase independence with ADLS. GOAL PROGRESSING; DISCONTINUE 08/15/2024 5/10 in arm at rest; 6-7/10 in arm Target Visit 10 OT Goal 2 Goal / Goal Update The patient will demonstrate increased sensation of R hand reporting minimal numbness/tingling to avoid discomfort during everyday tasks. Moderate numbness/tingling in R arm DISCONTINUE 08/15/2024 Target Visit 10 OT Goal 1 Goal / Goal Update The patient will demonstrate increased AROM of R wrist demonstrating 80 degrees supination, wrist flexion of 55 degrees, elbow extension to 15 degrees from 0 in order to maintain mobility for grooming tasks. PLATEAU; DISCONTINUE 08/15/2024 Supination: 50 degrees Wrist flexion: 40 degrees Wrist extension: 55 degrees R elbow flexion: 135 degrees R elbow extension: 22 degrees from 0 Target Visit 10 OT Goal 2 Goal / Goal Update The patient will demonstrate increased thermodynamics teacher strength at >45 lbs and lateral pinch at >6 lbs in order to perform dressing tasks with independence . DISCONTINUE; 08/15/2024 Panel Builder: 31.5 lbs Pinch: 3 lbs Target Visit 10
== END 2024-08-15 15:53 | disposition home or self-care (01) ==
LOC: CHSOT 09:35
PROVIDERS: PCP Family Medicine; Visit Provider Family Medicine
DX: S52.123D Displaced fracture of head of unspecified radius, subsequent encounter for closed fracture with routine healing (principal)
CPT/HCPCS: 97110; 97112; 97140; 97165; 97530; 97535

== ENCOUNTER 2024-09-18 08:12 | Outpatient (CLI) | payer MEDICARE, SELFPAY ==
--- NOTE | 2024-09-18 11:00 | NEURO_ITS ---
Impression: ??? # Complains of Numbness of hands? 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 # Mild Left Carpal Tunnel Syndrome # Abnormal Needle/EMG exam? Nerve Conduction Studies ?Stim Site NR Peak (ms) P-T Amp (?V) Site1 Site2 Delta-P (ms) Dist (cm) Ilan (m/s) Left Median Anti Sensory (2-3nd Digit) Wrist ? 4.6 8.5 Wrist 2-3nd Digit 4.6 14.0 30 Wrist ? 4.4 10.6 Wrist 2-3nd Digit 4.6 14.0 30 Right Median Anti Sensory (2-3nd Digit) Wrist ? 4.1 8.5 Wrist 2-3nd Digit 4.1 14.0 34 Wrist ? 4.2 9.6 Wrist 2-3nd Digit 4.1 14.0 34 Left Radial Anti Sensory (Base 1st Digit) Wrist ? 2.6 13.0 Wrist Base 1st Digit 2.6 0.0 Right Radial Anti Sensory (Base 1st Digit) Wrist ? 3.1 7.7 Wrist Base 1st Digit 3.1 0.0 Left Ulnar Anti Sensory (5th Digit) Wrist ? 3.3 18.5 Wrist 5th Digit 3.3 14.0 42 Right Ulnar Anti Sensory (5th Digit) Wrist ? 3.8 29.8 Wrist 5th Digit 3.8 14.0 37 ?Stim Site NR Onset (ms) O-P Amp (mV) Site1 Site2 Delta-0 (ms) Dist (cm) Ilan (m/s) Left Median Motor (Abd Poll Brev) Wrist ? 4.9 1.0 Elbow Wrist 6.7 31.0 46 Elbow ? 11.6 0.5 Right Median Motor (Abd Poll Brev) Wrist ? 4.2 2.9 Elbow Wrist 6.2 31.0 50 Elbow ? 10.4 2.4 Left Ulnar Motor (Abd Dig Minimi) Wrist ? 3.1 4.4 A Elbow Wrist 6.4 30.0 47 A Elbow ? 9.5 3.5 B Elbow Wrist 4.8 21.0 44 B Elbow ? 7.9 1.7 Right Ulnar Motor (Abd Dig Minimi) Wrist ? 3.4 3.2 A Elbow Wrist 8.2 31.0 38 A Elbow ? 11.6 2.0 B Elbow Wrist 4.3 22.0 51 B Elbow ? 7.7 2.6 Electromyography ?Side Muscle Nerve Root Ins Act Fibs Amp Dur Recrt Comment Right 1stDorInt Ulnar C8-T1 Nml Nml Nml >12ms Nml Right Ext Indicis Radial (Post Int) C7-8 Nml Nml Nml Nml Nml Right Ext Digitorum Radial (Post Int) C7-8 Nml Nml Nml Nml Nml Right BrachioRad Radial C5-6 Nml Nml Nml Nml Nml Right PronatorTeres Median C6-7 Nml Nml Nml Nml Nml Right Abd Poll Brev Median C8-T1 Nml Nml Nml Nml Nml Right ABD Dig Min Ulnar C8-T1 Nml Nml Nml >12ms Nml Right FlexPolLong Median (Ant Int) C7-8 Nml Nml Nml Nml Nml Right Abd Poll Long Radial (Post Int) C7-8 Nml Nml Nml Nml Nml Left 1stDorInt Ulnar C8-T1 Nml Nml Nml >12ms Nml Left Ext Indicis Radial (Post Int) C7-8 Nml Nml Nml Nml Nml Left Ext Digitorum Radial (Post Int) C7-8 Nml Nml Nml Nml Nml Left BrachioRad Radial C5-6 Nml Nml Nml Nml Nml Left PronatorTeres Median C6-7 Nml Nml Nml Nml Nml Left Abd Poll Brev Median C8-T1 Nml Nml Nml Nml Nml Left ABD Dig Min Ulnar C8-T1 Nml Nml Nml >12ms Nml Left FlexPolLong Median (Ant Int) C7-8 Nml Nml Nml Nml Nml Left Abd Poll Long Radial (Post Int) C7-8 Nml Nml Nml Nml Nml
== END 2024-09-18 08:13 | disposition home or self-care (01) ==
PROVIDERS: PCP Family Medicine; Visit Provider Family Medicine
DX: G56.23 Lesion of ulnar nerve, bilateral upper limbs (principal); G56.02 Carpal tunnel syndrome, left upper limb
CPT/HCPCS: 95886; 95911

== ENCOUNTER 2024-11-27 10:19 | Outpatient (CLI) | payer MEDICARE, SELFPAY ==
--- OUTSIDE RECORDS SUMMARY | 2012-12-27 04:00 | XMS_ITS | Continuity of Care Document ---
Author Organization [facility] Address [address] [place] [address] [place] [address] Phone Care Team Providers Care Cold Roll Inspector Name Role Phone Ricardo Smith MD, FACS Unavailable Unavailab le Procedures Procedure Date After Cataract Laser Surgery Office/outpatient Visit, [facility] No Charge Optomap Fundus Photos 013 [...] Providers Copied on Encounter Office/outpat ient Visit, [facility], [address] [facility] [address], [place], [place], [address], [place] tel:[phone] ALMA VALERO Professional [employer]SCUR VISION Oct-0 8-201 3 Luis Silva. [address], [address], [place], [place], [address], [place]. tel:[phone] Referring Provider: Leandra Ward OD, [facility] [address] [place], [address]. tel:[phone] Family History Family Member Type Diagnosis Age At Onset Brother Problem (finding) diabetes dianai aarons in first degree relative Problem (finding) Payers Payer name Insurance type Covered constitution party ID Authorjaci roman(s) Medicare [facility] [id number] Social History Type Description Quantity Date Captured [...]
--- NOTE | ~2024-11-27 | XR_ITS ---
EXAMINATION: XR forearm RT 2V DATE: 11/27/2024 10:41 INDICATION: Right forearm pain inferior to the TECHNIQUE: AP an lateral views of the right forearm were obtained. COMPARISON: Right elbow radiographs dated 06/04/2024 FINDINGS: Diffuse osteopenia. Bone alignment is normal. No fracture. Severe osteoarthritis at both the radiocapitellar and ulnotrochlear articulations of the right elbow. Several corticated ossicles likely degenerative loose osteochondral bodies throughout the recess of the elbow joint. No elbow joint effusion. Chronic advanced osteoarthritis at the first carpometacarpal joint with remodeling of the proximal first metacarpal with prominent volar/ulnar sided hypertrophic changes. Additional mild osteoarthritis at the wrist, triscaphe, first metacarpophalangeal and remaining carpal metacarpal joints. Tiny olecranon spur. IMPRESSION: 1. No acute osseous abnormality with polyarticular osteoarthritis, severe at the right elbow and first carpal metacarpal joints. Reviewed, dictated and finalized at location A. IMPRESSION: 1. No acute osseous abnormality with polyarticular osteoarthritis, severe at th e right elbow and first carpal metacarpal joints.
--- OUTSIDE RECORDS SUMMARY | 2024-11-27 10:42 | XMS_ITS | Clinical Summary ---
Author Organization [facility] Address [address] [place] [address] Care Team Providers Care Bottler Helper Name Role Phone Riki Watson MD Primary Care Provider [phone] Source Comments [facility],non-owned Affiliates and Associated Physician Practices is amultiple site organization consisting of ambulatory clinics and hospital sitesin [place], [place], [place] and [place]. This disclosure is being madepursuant to the Care Everywhere program and may not contain all information available regarding this patient. Last updated 17.[facility] Allergies Active Allergy Reactions Criticality Noted Date Comments Morphine Psychiatric Medium 01/19/2019 HALLUCINATIONS Medications * Be aware that medications may not be up to date on this document. Alwaysverify current medications with the patient. lovastatin (MEVACOR) 40 MG tablet Take 40 mg by mouth at bedtime Active finasteride (PROSCAR) 5 MG tablet Take 5 mg by mouth once daily Active Menthol, Topical Analgesic, (BIOFREEZE ROLL-ON EX) Active polyethylene glycol 3350 (MIRALAX) packet Take 17 g by mouth once daily as needed for Constipation 9 Active HYDROcodone-romario taminophen (NORCO) 5-325 MG tablet 1 Active tamsulosin (FLOMAX) 0.4 MG capsule 1 Active pregabalin (LYRICA) 150 MG capsule Take 1 capsule by mouth 2 times daily 1 Active MYRBETRIQ 50 MG tablet 2 Active Active Problems Problem Noted Date Diagnosed [...] at Not on file Legal Sex 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 Gender Identity Not on file Sexual Orientation Not on file Last Filed Vital Signs Vital Sign Reading Time Taken Comments Blood Pressure 153/89 01/24/2019 8:45 AM GLAZIER SUPERVISOR Pulse 63 01/24/2019 8:45 AM GLAZIER SUPERVISOR Temperature 36.9 C (98.4 F) 01/24/2019 8:45 AM GLAZIER SUPERVISOR Respiratory Rate 18 01/24/2019 8:45 AM GLAZIER SUPERVISOR Oxygen Saturation 93% 01/24/2019 8:45 AM GLAZIER SUPERVISOR Inhaled Oxygen Concentration - - Weight 117 kg (258 lb) 05/19/2021 9:07 AM GLAZIER SUPERVISOR Height 167.6 cm (5' 6) 05/19/2021 9:07 AM GLAZIER SUPERVISOR Body Mass Index 41.64 05/19/2021 9:07 AM GLAZIER SUPERVISOR Plan of Treatment Health Maintenance Due Date Last Done Comments DTAP/TDAP/TD VACCINES (1 - Tdap) 1964 PNEUMOCOCCAL VACCINE 50+ (1 of 1 - PCV) 1994 ZOSTER VACCINE (1 of 2) 1994 Respiratory Syncytial Virus (RSV) Vaccine Pt: or over 60 yrs (1 - 1-dose 75+ series) 2019 DEPRESSION SCREENING 03/22/2024 COVID-19 VACCINE (3 - 2024-2 6 season) 2024 06/28/2020, 05/31/2020 INFLUENZA VACCINE (#1) 2024 HEPATITIS B VACCINE Aged Out No [...] this topic Medical Devices Implanted Type Area Folder Hand Device Identifier Shelf Expiration Date Model / Serial / Lot Screw 3.5mm 16mm Pa Spne Oct [place] Implanted:Qty: 3 on 01/19/2019 by Josep Armando MD at [facility] N/A: Spine Hockley Spine [id number] / / [place] Oct Polyaxial Screw Implanted:Qty: 4 on 01/19/2019 by Josep Armando MD at [facility] N/A: Spine [employer] [id number] / / Screw 3.5mm 22mm Pa Spne Oct [place] Implanted:Qty: 2 on 01/19/2019 by Josep Armando MD at [facility] N/A: Spine Angela Spine [id number] / / Screw Set Spne Oct [place] Nonster Lf Implanted:Qty: 15 on 01/19/2019 by Josep Armando MD at [facility] N/A: Spine Hockley Spine [id number] / / Screw 5mm 34mm Pa Spne Oct [place] Nonster Implanted:Qty: 4 on 01/19/2019 by Josep Armando MD at [facility] N/A: Spine Hockley Spine [id number] / / Prasad Spnl 240mm 4mm [place] Str Oct Ti Implanted:Qty: 1 on 01/19/2019 by Josep Armando MD at [facility] N/A: Spine Angela Spine [id number] / / Cnct Prasad 10mm 3.5mm [place] Lat Ofst Spne Implanted:Qty: 2 on 01/19/2019 by Josep Armando MD at [facility] N/A: Spine Hockley Spine [id number] / / Graft Bone Canc 4-9.5mm 30cc Algrf Frzdr Implanted:Qty: 1 on 01/19/2019 by Josep Armando MD at [facility] N/A: Spine [employer]ource 07/21/2022 [id number] / / [id number] Insurance [facility] MANAGED MEDICARE ADV [facility] MANAGED MEDICARE ADV Advance Directives * Full Code (Latest Code Status on File) Date Activated Date Inactivated Comments 01/19/2019 6:46 PM 01/24/2019 12:54 PM * Full Code Date Activated Date Inactivated Comments 01/19/2019 6:46 PM 01/19/2019 6:46 PM Care Teams Bottler Helper Relationship Specialty Start Date End Date Riki Watson MD [address] [place] [id number] [facility] - General 05/04/18
== END 2024-11-27 10:20 | disposition home or self-care (01) ==
LOC: CHSIMG 10:20
PROVIDERS: PCP Family Medicine; Visit Provider Family Medicine
DX: M79.631 Pain in right forearm (principal); M15.9 Polyosteoarthritis, unspecified
CPT/HCPCS: 73090

== ENCOUNTER 2024-12-11 07:08 | Outpatient (CLI) | payer MEDICARE, SELFPAY ==
--- NOTE | ~2024-12-11 | XR_ITS ---
XR hand RT min 3V 12/11/2024 07:36 Indication: Unilateral osteoarthritis of the first carpal metacarpal joint. Procedure: 4 views right hand Comparison: No prior studies for comparison. Findings: There is polyarticular osteoarthritis of the right wrist and hand most advanced at the first carpal metacarpal and metacarpal phalangeal joints. There are degenerative changes of the interphalangeal joints and the second and third metacarpophalangeal joints. No acute fracture is identified. Osteopenia. No significant soft tissue abnormality. No foreign bodies. 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 Reviewed, dictated and finalized at location O. 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
--- NOTE | ~2024-12-11 | XR_ITS ---
EXAMINATION: XR elbow RT min 3V, 12/11/2024 7:15 CDT HISTORY: G56.23 - Lesion of ulnar nerve, bilateral upper limbs COMPARISON: No comparisons available. Findings: No acute fracture or malalignment. Severe degenerative changes with remote-appearing corticated fractures, no acute fracture is identified. Small joint effusion. Soft tissue swelling. Impression: Severe degenerative changes. MRI recommended Reviewed, dictated and finalized at location A. Impression: Severe degenerative changes. MRI recommended
== END 2024-12-11 07:09 | disposition home or self-care (01) ==
PROVIDERS: PCP Family Medicine; Visit Provider Physician Assistant Surgical
DX: M18.11 Unilateral primary osteoarthritis of first carpometacarpal joint, right hand (principal); W19.XXXA Unspecified fall, initial encounter; G56.23 Lesion of ulnar nerve, bilateral upper limbs
CPT/HCPCS: 73080; 73130

== ENCOUNTER 2025-02-08 07:49 | Outpatient (CLI) | payer MEDICARE, SELFPAY ==
--- OUTSIDE RECORDS SUMMARY | 2012-12-27 03:00 | XMS_ITS | Continuity of Care Document ---
Author Organization [facility] Address [address] [place] [address] [place] [address] Phone Care Team Providers Care Neurology Professor Name Role Phone Ricardo Smith MD, FACS Unavailable Unavailab le Procedures Procedure Date After Cataract Laser Surgery Office/outpatient Visit, [facility] No Charge Optomap Fundus Photos 013 No Charge Refraction After Cataract Laser Surgery Advance Directives Directive Yes / No Effective Date File Name Resuscitation Not Answered N/A N/A Life Support Not Answered N/A N/A Intubation Not Answered N/A N/A Antibiotics Not Answered N/A N/A IV Fluid Support Not Answered N/A N/A Tube Feed Not Answered N/A N/A Other Directive N/A N/A WARNING:The information contained in this section is historical and is provided for information only and does not constitute a legal document or any assurance that the information is still accurate. Please verify the information with the chin of the legal document before using it for clinical purposes. Encounters Encounter Description Practice Location Reason(s) For Visit Diagnoses Date Provider Providers Copied on Encounter Office/outpat ient Visit, [facility], [address] [place] [address] [address], [place], [place], [address], [place] tel:[phone] ALMA VALERO Professional [employer]TR-CATAR OBSCUR VISION Oct-0 8-201 3 Luis Silva. [address], [address], [place], [place], [address], [place]. tel:[phone] Referring Provider: Leandra Ward OD, [facility] [address] [place], [address]. tel:[phone] Family History Family Member Type Diagnosis Age At Onset Brother Problem (finding) diabetes dianai aarons in first degree relative Problem (finding) Payers Payer name Insurance type Covered constitution party ID Authorjaci roman(s) Medicare [facility] [id number] Social History Type Description Quantity Date Captured Comments Alcohol Use Details No Caffeine Use Details 3 cups per day Tobacco Use Status No Information Smoking Status Never smoker Non-Smoking Tobacco Use Details : No Details Available : No Details Available Sex Male Chief Complaint And Reason For Visit No Information Reason For Referral Reason For Referral No Information History Of Present Illness Encounter Date Complaint History Of Prese nt Illness No Information Functional Status Date Functional Assessmen t No Information Instructions Date Instruction Additional Brandon blandon - return to Dr. Ward Related t o AFTR-CATAR OBSCUR VISION AFTR-CATAR OBSCUR MATHIEU OD Vision: vision affected. - Discussed diagnosis with patient and YAG PC understood for treatment, will proceed with laser treatment today. Educational materials provided:Yag Capsulotomy. Related to AFTR-CATAR OBSCUR VISION Assessments Type Assessment Date No Information Patient Care Teams Name Effective Dates (start - stop) Status Members No Information
--- OUTSIDE RECORDS SUMMARY | 2012-12-27 03:00 | XMS_ITS | Continuity of Care Document ---
Author Organization [facility] Address [address] [place] [address] [place] [address] Phone Care Team Providers Care Material Handling Crew Supervisor Name Role Phone Ricardo Smith MD, FACS Unavailable Unavailab le Procedures Procedure Date After Cataract Laser Surgery Office/outpatient Visit, [facility] No Charge Optomap Fundus Photos 013 [...] Providers Copied on Encounter Office/outpat ient Visit, [facility], [address] [place] [address] [address], [place], [place], [id number], [place] tel:[phone] ALMA VALERO Professional [employer]TR-CATAR OBSCUR VISION Oct-0 8-201 3 Luis Silva. [address], [address], [place], [place], [address], [place]. tel:[phone] Referring Provider: Leandra Ward OD, [facility] [address] [place], [address]. tel:[phone] Family History Family Member Type Diagnosis Age At Onset Brother Problem (finding) diabetes dianai aarons in first degree relative Problem (finding) Payers Payer name Insurance type Covered democrat ID Authorjaci roman(s) Medicare [facility] [id number] Social History Type Description Quantity Date Captured [...]
--- OUTSIDE RECORDS SUMMARY | 2012-12-27 03:00 | XMS_ITS | Continuity of Care Document ---
Author Organization [facility] Address [address] [place] [address] [place] [address] Phone Care Team Providers Care Food Safety Scientist Name Role Phone Ricardo Smith MD, FACS Unavailable Unavailab le Procedures Procedure Date After Cataract Laser Surgery Office/outpatient Visit, [facility] No Charge Optomap Fundus Photos 013 [...] Providers Copied on Encounter Office/outpat ient Visit, [facility], [address] [place] [address] [address], [place], [place], [id number], [place] tel:[phone] ALMA VALERO Professional [employer]CAT[employer]SCUR VISION Oct-0 8-201 3 Luis Silva. [address], [address], [place], [place], [address], [place]. tel:[phone] Referring Provider: Leandra Ward OD, [facility] [address] [place], [address]. tel:[phone] Family History Family Member Type Diagnosis Age At Onset Brother Problem (finding) diabetes dianai aarons in first degree relative Problem (finding) Payers Payer name Insurance type Covered constitution party ID Authorjaci roman(s) Medicare [facility] [id number] Social History Type Description Quantity Date Captured [...]
--- OUTSIDE RECORDS SUMMARY | 2012-12-27 03:00 | XMS_ITS | Continuity of Care Document ---
Author Organization [facility] Address [address] [place] [address] [place] [address] Phone Care Team Providers Care Fuel Quality Tech Name Role Phone Ricardo Smith MD, FACS Unavailable Unavailab le Procedures Procedure Date After Cataract Laser Surgery Office/outpatient Visit, [facility] No Charge Optomap Fundus Photos 013 No [...] Providers Copied on Encounter Office/outpat ient Visit, [facility], [address] [place] [address] [address], [place], [place], [address], [place] tel:[phone] ALMA VALERO Professional [employer]TR-CATAR OBSCUR VISION Oct-0 8-201 3 Luis Silva. [address], [address], [place], [place], [address], [place]. tel:[phone] Referring Provider: Leandra Ward OD, [facility] [address] [place], [address]. tel:[phone] Family History Family Member Type Diagnosis Age At Onset Brother Problem (finding) diabetes dianai araons in first degree relative Problem (finding) Payers Payer name Insurance type Covered alliance party ID Authorjaci roman(s) Medicare [facility] [id number] Social History Type Description Quantity Date Captured [...]
--- OUTSIDE RECORDS SUMMARY | 2012-12-27 03:00 | XMS_ITS | Continuity of Care Document ---
Author Organization [facility] Address [address] [place] [address] [place] [address] Phone Care Team Providers Care Generator Mechanic Name Role Phone Ricardo Smith MD, FACS Unavailable Unavailab le Procedures Procedure Date After Cataract Laser Surgery Office/outpatient Visit, [facility] No Charge Optomap Fundus Photos 013 [...] Providers Copied on Encounter Office/outpat ient Visit, [facility], [address] [place] [address] [address], [place], [place], [address], [place] tel:[phone] ALMA VALERO Professional [employer] OBSCUR VISION Oct-0 8-201 3 Luis Silva. [address], [address], [place], [place], [address], [place]. tel:[phone] Referring Provider: Leandra Wrad OD, [facility] [address] [place], [address]. tel:[phone] Family History Family Member Type Diagnosis Age At Onset Brother Problem (finding) diabetes dianai aarons in first degree relative Problem (finding) Payers Payer name Insurance type Covered republican ID Authorjaci roman(s) Medicare [facility] [id number] Social History Type Description Quantity Date Captured [...]
--- OUTSIDE RECORDS SUMMARY | 2012-12-27 03:00 | XMS_ITS | Continuity of Care Document ---
Author Organization [facility] Address [address] [place] [address] [place] [address] Phone Care Team Providers Care Printer'S Assistant Name Role Phone Ricardo Smith MD, FACS Unavailable Unavailab le Procedures Procedure Date After Cataract Laser Surgery Office/outpatient Visit, [facility] No Charge Optomap Fundus Photos 013 No [...] Copied on Encounter Office/outpat ient Visit, [facility], [address] [place] [address] [address], [place], [place], [address], [place] tel:[phone] ALMA VALERO Professional [employer]SCUR VISION Oct-0 8-201 3 Luis Silva. [address], [address], [place], [place], [address], [place]. tel:[phone] Referring Provider: Leandra Ward OD, [facility] [address] [place], [address]. tel:[phone] Family History Family Member Type Diagnosis Age At Onset Brother Problem (finding) diabetes dianai aarons in first degree relative Problem (finding) Payers Payer name Insurance type Covered libertarian ID Authorjaci roman(s) Medicare [facility] [id number] Social History Type Description Quantity Date Captured [...]
--- NOTE | ~2025-02-08 | NM_ITS ---
EXAMINATION: NM dave stress w perfusion DATE: 02/08/2025 11:35 INDICATION: Encounter for preprocedural cardiovascular exam TECHNIQUE: Rest images were obtained following intravenous administration of 10.8 mCi Tc99m tetrofosmin (Myoview). The patient was infused intravenously with Lexiscan (Regadenoson). Then, 32.8 mCi Tc99m tetrofosmin (Myoview) was administered intravenously, and stress images were obtained, initially in the supine position with repeat post stress images obtained in the prone position.. Data was reconstructed into short axis and horizontal and vertical long axis SPECT images. Gated SPECT images were also obtained. COMPARISON: None. FINDINGS: There is a perfusion defect on the stress images obtained in both the supine and prone position involving the mid anterior segment which is nonreversible consistent with infarct and which is reversible at the mid anterolateral segment consistent with ischemia. There is normal left ventricula r chamber size, wall motion and ejection fraction. Left ventricular ejection fraction measures >70%. IMPRESSION: 1. Small mild infarct at the mid anterior segment and mild ischemia in the adjacent mid anterolateral segment. 2. Left ventricular ejection fraction measuring >70%. Reviewed, dictated and finalized at location A. CAL TRANSLATOR IMPRESSION: 1. Small mild infarct at the mid anterior segment and mild ischemia in the aldo cent mid anterolateral segment. 2. Left ventricular ejection fraction measuring >70%.
--- OUTSIDE RECORDS SUMMARY | 2025-02-08 07:53 | XMS_ITS | Clinical Summary ---
Author Organization [facility] Address [address] [place] [id number] Care Team Providers Care Rug Touch Up Painter Name Role Phone Unavailable Primary Care Provider Unavailabl e Immunizations Immunization Administration Dates Next Due MODERNA COVID-19 (12+) [...] Health Maintenance Due Date Last Done Comments DTaP, Tdap and Td Vaccines ( 1 - Tdap) 1963 Zoster Vaccines (1 of 2) 1994 RSV Immunization or 60+ Years (1 - 1-dose 75+ series) 2019 Pneumococcal Vaccine: 50+ Years (2 of 2 - PCV20 or PCV21) 12/17/2020 12/18/2019 COVID-19 Vaccine (3 - 2024-2 6 season) 2024 06/28/2020, 05/31/2020 Influenza Adult (#1) 2024 Hepatitis A Vaccines Aged Out No long er eligible based on patient's age to complete this topic Meningococcal B Vaccine Aged Out No l onger eligible based on patient's age to complete this topic Meningococcal Vaccine Aged Out No dean kam eligible based on patient's age to complete this topic RSV Immunizations Under 20 Months Aged Out No longer eligible b ased on patient's age to complete this topic
--- OUTSIDE RECORDS SUMMARY | 2025-02-08 07:54 | XMS_ITS | Clinical Summary ---
Author Organization [facility] Address [address] [place] [address] Care Team Providers Care Oil Truck Driver Name Role Phone Riki Watson MD Primary Care Provider [phone] Source Comments [facility],non-owned Affiliates and Associated Physician Practices is amultiple site organization consisting of ambulatory clinics and hospital sitesin [place], [place] and [place]. This disclosure is being madepursuant to the Care Everywhere program and may not contain all information available regarding this patient. 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 Gender Identity Not on file Sexual Orientation Not on file Last Filed Vital Signs Vital Sign Reading Time Taken Comments Blood Pressure 153/89 01/24/2019 8:45 AM PHARMACIST CRITICAL CARE Pulse 63 01/24/2019 8:45 AM PHARMACIST CRITICAL CARE Temperature 36.9 C (98.4 F) 01/24/2019 8:45 AM PHARMACIST CRITICAL CARE Respiratory Rate 18 01/24/2019 8:45 AM PHARMACIST CRITICAL CARE Oxygen Saturation 93% 01/24/2019 8:45 AM PHARMACIST CRITICAL CARE Inhaled Oxygen Concentration - - Weight 117 kg (258 lb) 05/19/2021 9:07 AM PHARMACIST CRITICAL CARE Height 167.6 cm (5' 6) 05/19/2021 9:07 AM PHARMACIST CRITICAL CARE Body Mass Index 41.64 05/19/2021 9:07 AM PHARMACIST CRITICAL CARE Plan of Treatment Health Maintenance Due Date [...] this topic Medical Devices Implanted Type Area Potato Chip Sacking Machine Operator Device Identifier Shelf Expiration Date Model / Serial / Lot Screw 3.5mm 16mm Pa Spne Oct [place] Implanted:Qty: 3 on 01/19/2019 by Josep Armando MD at [facility] N/A: Spine Jerome Spine [id number] / / [place] Oct Polyaxial Screw Implanted:Qty: 4 on 01/19/2019 by Josep Armando MD at [facility] N/A: Spine [employer] [id number] / / Screw 3.5mm 22mm Pa Spne Oct [place] Implanted:Qty: 2 on 01/19/2019 by Josep Armando MD at [facility] N/A: Spine Angela Spine [id number] / / Screw Set Spne Oct [place] Nonster Lf Implanted:Qty: 15 on 01/19/2019 by Josep Armando MD at [facility] N/A: Spine Jerome Spine [id number] / / Screw 5mm 34mm Pa Spne Oct [place] Nonster Implanted:Qty: 4 on 01/19/2019 by Josep Armando MD at [facility] N/A: Spine Jerome Spine [id number] / / Prasad Spnl 240mm 4mm [place] Str Oct Ti Implanted:Qty: 1 on 01/19/2019 by Josep Armando MD at [facility] N/A: Spine Angela Spine [id number] / / Cnct Prasad 10mm 3.5mm [place] Lat Ofst Spne Implanted:Qty: 2 on 01/19/2019 by Josep Armando MD at [facility] N/A: Spine Jerome Spine [id number] / / Graft Bone Canc 4-9.5mm 30cc Algrf Frzdr Implanted:Qty: 1 on 01/19/2019 by Josep Armando MD at [facility] N/A: Spine [employer]ource 07/21/2022 [id number] / / [id number] Insurance [facility] MANAGED MEDICARE ADV [facility] MANAGED MEDICARE ADV Advance Directives * Full Code (Latest Code Status on File) Date Activated Date Inactivated Comments 01/19/2019 6:46 PM 01/24/2019 12:54 PM * Full Code Date Activated Date Inactivated Comments 01/19/2019 6:46 PM 01/19/2019 6:46 PM Care Teams Oil Truck Driver Relationship Specialty Start Date End Date Riki Watson MD [address] [place] [id number] [facility] - General 05/04/18
--- NOTE | 2025-02-08 08:06 | EST_ITS ---
Patient Info Name: Fredrick Santiago Age: 79 years : 1945 Gender: Male Ht: 66 in Wt: 225 lbs BSA: 2.22 m2 HR: 68 bpm BP: 152 / 100 mmHg Exam Date: 02/08/2025 8:06 AM Patient Status: O Admit Date: 02/08/2025 Exam Type: CA stress dave w NM A regadenoson stress test was performed. Staff Referring Physician: oJurdan Rodriguez DO Attending Provider: Jourdan Rodriguez DO Exercise Technologist: Belén Moe Exercise Physician: Jourdan Rodriguez DO Summary 1. 1. Negative lexiscan stress test for ischemic ST changes by ECG criteria. 2. 2. Baseline hypertension. 3. 3. Nuclear scan to follow and will be reported separately. Please correlate with it. 4. 4. Patient informed of the above results. Protocol: Lexiscan Stress ECG Details Stage: REST Duration (min): 1 min : 51 sec HR (bpm): 68 SBP (mmHg): 152 DBP (mmHg): 100 Stage: REST Duration (min): 17 min : 44 sec HR (bpm): 74 SBP (mmHg): 152 DBP (mmHg): 100 Stage: STAGE 1 Duration (min): 0 min : 59 sec HR (bpm): 71 SBP (mmHg): 167 DBP (mmHg): 87 Stage: RECOVERY Duration (min): 1 min : 0 sec HR (bpm): 82 SBP (mmHg): 167 DBP (mmHg): 87 Stage: RECOVERY Duration (min): 2 min : 0 sec HR (bpm): 78 SBP (mmHg): 167 DBP (mmHg): 87 Stage: RECOVERY Duration (min): 3 min : 0 sec HR (bpm): 75 SBP (mmHg): 150 DBP (mmHg): 87 Stage: RECOVERY Duration (min): 4 min : 0 sec HR (bpm): 77 SBP (mmHg): 150 DBP (mmHg): 87 Stage: RECOVERY Duration (min): 5 min : 0 sec HR (bpm): 72 SBP (mmHg): 143 DBP (mmHg): 88 Stage: RECOVERY Duration (min): 5 min : 18 sec HR (bpm): 75 SBP (mmHg): 143 DBP (mmHg): 88 Rest HR: 74 bpm Peak HR: 84 bpm Rest Sys BP: 152 mmHg Peak Sys BP: 167 mmHg Max Pred HR: 140 bpm % Max Pred HR: 60 % Target HR: 119 bpm Max RPP: 14,028 bpm*mmHg Termination Reason: Completed protocol Cardiac Symptoms: Shortness of breath Total Time: 1 min : 0 sec Rest Carrero BP: 100 mmHg Peak Carrero BP: 87 mmHg Total Dose: 0.4 mg Resting ECG Sinus rhythm, RBBB. Stress ECG No ST changes. Arrhythmias None. Report Signatures
== END 2025-02-08 07:50 | disposition home or self-care (01) ==
PROVIDERS: PCP Family Medicine; Visit Provider Internal Medicine Cardiovascular Disease
DX: Z01.810 Encounter for preprocedural cardiovascular examination (principal); I10 Essential (primary) hypertension; I25.2 Old myocardial infarction
CPT/HCPCS: 78452; 93017; A9502; J2785